=== PATIENT | male | born 1945 | race Caucasian/White ===

== ENCOUNTER 2020-09-30 13:53 | Outpatient (REF) | payer MEDICARE, SELFPAY ==
--- NOTE | 2020-10-01 11:16 | MHC.AU.P13 ---
Adult Audiological Evaluation Date of Visit: 09/30/20 Reason for Appointment: Audiological evaluation due to concerns for decreased hearing and tinnitus. Mr. Blackman reports that his feels he does not hear well. He reports that he has been experiencing constant, bilateral tinnitus for ~5 years. 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 Medical History: Medical History: High Blood Pressure Medical History (Other): Left knee replaced in 2007, prostate operation, chronic sinus congestion, history of deviated septum Otoscopy: Right Ear: Unremarkable Left Ear: Unremarkable Tympanometry: Tympanometry performed due to: History of allergies/congestion Right Ear: Non-compliant Middle Ear System (Type B) Left Ear: Reduced Middle Ear Compliance (Type As) Hearing Evaluation: Transducer(s) Used: Insert Earphones, Bone Conduction Method: Conventional Audiometry Stimuli Used: Pure Tones Right Ear: Description of Hearing: Normal hearing at 250 with a 15 dB conductive component, normal hearing 500-1000 Hz, sloping to a mild to moderately severe sensorineural hearing loss from 7268-0025 Hz, a moderately severe mixed hearing loss at 4000 Hz, and a severe hearing loss at 5542-9329 Hz. Left Ear: Description of Hearing: Moderate conductive hearing loss at 250 Hz, rising to a mild conductive hearing loss at 500 Hz, normal hearing at 0459-6969 Hz, sloping to a moderate sensorineural hearing loss at 2000 Hz, a moderate mixed hearing loss at 3000 Hz, a moderately severe sensorineural hearing loss at 4000 Hz, and a severe hearing loss from 1308-2831 Hz. Speech Recognition Threshold (SRT): Method Used: Monitored Live Voice Stimuli Used: Spondee Words Right Ear: 25 dBHL Left Ear: 25 dBHL Word Discrimination: Method: Recorded Lists Word Lists Used: NU-6 Right Ear: 88% at 65 dBHL Left Ear: 100% at 65 dBHL Recommendations: Audiological re-evaluation in one year. Trial with amplification is recommended. Referral to Ear, Nose, and Throat to address middle ear dysfunction. Mr. Blackman reports that he was referred to ENT due to his chronic sinus congestion. Recommend that he follow-up with ENT regarding the conductive components to his hearing loss and middle-ear dysfunction as well. Binaural amplification is recommended. Briefly discussed hearing aids today and welcomed him to return to discuss further following his visit with ENT. Discussed tinnitus and it's exacerbating factors today, such as caffeine, high salt intake, alcohol, nicotine, and stress. Recommend using noise (i.e. fans, music, calming sound generators) to help mask tinnitus when it is most bothersome. Diagnosis: Primary Diagnosis: H90.6 Mixed Hearing Loss, Bilateral Secondary Diagnosis: H93.13 Tinnitus, Bilateral Services Performed: Services Performed: Comprehensive Audiological Evaluation (CPT 43542) Tympanometry (CPT 16700) Signature: Provider: Dee Dee Vernon, CCC-A
== END 2020-09-30 13:54 | disposition home or self-care (01) ==
LOC: HO.SH 13:53
PROVIDERS: Visit Provider Internal Medicine
DX: H90.6 Mixed conductive and sensorineural hearing loss, bilateral (principal); H93.13 Tinnitus, bilateral
CPT/HCPCS: 92557; 92567

== ENCOUNTER 2024-08-12 09:09 | Outpatient (REF) | payer MEDICARE, SELFPAY ==
[2024-08-12 09:32] LABS: MANUAL DIFF FLAG NO
[2024-08-12 10:11] LABS: Basophils Absolute Auto 0.1 X10*3/uL (0.0-0.2); Basophils Percent Auto 0.7 % (0-2); Eosinophils Absolute Auto 0.3 X10*3/uL (0.0-0.4); Eosinophils Percent Auto 2.2 % (0-4); Hematocrit 44.5 % (42.0-52.0); Hemoglobin 14.4 g/dl (14.0-18.0); Imm Gran Abs Auto 0.06 X10*3/uL (0.00-0.03); Imm Gran Pct Auto 0.5 % (0.0-0.4); Lymphocytes Percent Auto 17.6 % (20-40); Mean Corpuscular HGB Conc 32.4 g/dl (31.0-36.0); Mean Corpuscular Hemoglobin 31.2 pg (27.0-33.0); Mean Corpuscular Volume 96.5 fL (80.0-98.0); Mean Platelet Volume 11.5 fL (9.4-12.4); Monocytes Absolute Auto 1.4 X10*3/uL (0.1-1.2); Monocytes Percent Auto 11.8 % (2-11); Neutrophils Absolute Auto 7.8 x10*3/uL (2.0-8.3); Neutrophils Percent Auto 67.2 % (45-73); Platelet Count 226 X10*3/uL (160-400); Red Blood Count 4.61 X10*6/uL (4.60-5.80); Red Cell Distribution Width 12.9 % (11.0-16.0); White Blood Count 11.6 X10*3/uL (4.8-10.8)
[2024-08-12 10:18] LABS: Estimated Average Glucose 126 mg/dL; Hemoglobin A1C 156.6054 umol/L; Total Hemoglobin (HGBA1C) 3710.4418 umol/L
[2024-08-12 10:47] LABS: Alanine Aminotransferase 70 U/L (0-40); Albumin Level 4.1 g/dL (3.5-5.0); Alkaline Phosphatase 72 U/L (39-117); Anion Gap 15 (12-20); Aspartate Amino Transferase 40 U/L (5-37); Bilirubin Total 0.4 mg/dL (0.0-1.0); Blood Urea Nitrogen 22 mg/dL (9-16); Calcium 9.9 mg/dL (8.4-10.2); Carbon Dioxide 27 mmol/L (22-29); Chloride 106 mmol/L (96-108); Cholesterol 126 mg/dL (<200); Estimated Glomerular Filt Rate 40; Glucose Random 69 mg/dL (60-115); HDL Cholesterol 48 mg/dL (>40); LDL Cholesterol Calculated 59 mg/dL (<100); Potassium 4.8 mmol/L (3.3-5.1); Sodium 143 mmol/L (135-145); Total Protein 7.1 g/dL (6.5-8.0); Triglycerides 99 mg/dL (<150)
[2024-08-12 11:09] LABS: Prostate Specific Antigen 9.68 ng/mL (<0.05-4.0)
== END 2024-08-12 09:10 | disposition home or self-care (01) ==
LOC: HO.LAB 09:09
DX: Z00.00 Encounter for general adult medical examination without abnormal findings (principal); E11.9 Type 2 diabetes mellitus without complications; Z12.5 Encounter for screening for malignant neoplasm of prostate
CPT/HCPCS: 36415; 80053; 80061; 83036; 84153; 85025

== ENCOUNTER 2024-10-15 12:51 | Outpatient (REF) | payer MEDICARE, SELFPAY ==
--- OUTSIDE RECORDS SUMMARY | 2024-10-15 13:54 | XMS_ITS | Clinical Summary ---
Author Organization [facility] Address [id number] [place] [phone] Care Team Providers Care Space Engineer Name Role Phone Joleen Bowers Primary Care Provider [phone] Medications amLODIPine (NORVASC) 2.5 mg tablet TAKE 1 TABLET DAILY 90 tablet 3 08/22/2024 Active amiodarone (PACERONE) 200 mg tablet TAKE 1 TABLET DAILY 90 tablet 09/10/2024 Active Encounters Date Type Department Care Team Description 08/12/2024 Telephone [facility] [address] [facility] [address] [place] [address] Marquise Leyva MD from Last 3 Months Surgical History Surgery Date Site/Laterality Comments TOTAL KNEE ARTHROPLASTY PROCEDURE: HISTORICAL TOTAL KNEE REPLACE; COMMENT: left COLONOSCOPY 07/16/07 PROCEDURE: DE COLONOSCOPY STOMA DX INCLUDING COLLJ SPEC SPX; COMMENT: Up to cecum, regular preparation, colon polyps (one not removed), tubular adenoma, moderate diverticulosis COLONOSCOPY W/ BIOPSIES 11/2010 PROCEDURE: DE COLONOSCOPY STOMA W/BIOPSY SINGLE/MULTIPLE; COMMENT: adenomas and tics; repeat in five years COLONOSCOPY 12/11/15 PROCEDURE: HISTORICAL COLONOSCOPY; COMMENT: tics; repeat in 5 yrs LIPOMA RESECTION PROCEDURE: SKIN TISSUE EXCISION(LIPOMA); COMMENT: multiple on back OTHER SURGICAL HISTORY PROCEDURE: DE OBLTRJ 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 REPAIR PROCEDURE: REPAIR UMBILICAL HERNIA Medical History Medical History Date Comments Unspecified essential hypertension DX:Unspecified essential hypertension Osteoarthrosis, unspecified whether generalized or localized, lower leg 10/18/2005 DX:Osteoarthrosis, unspecified whether generalized or localized, lower leg; COMMENT: Left knee S/P arthroscopy 2003: DJD GERD (gastroesophageal reflu x disease) 09/12/2005 DX:GERD (gastroesophageal re flux disease) BPH (benign prostatic hyperplasia) 06/27/2014 DX:BPH (benign prostatic hyperplasia) Osteoarthrosis, unspecified whether generalized or localized, hand 12/27/2005 DX:Osteoarthrosis, unsp ecified whether generalized or localized, hand; COMMENT: R>L thumbs CKD (chronic kidney disease) stage 3, GFR 30-59 ml/min (CMS/HCC) 04/13/2015 DX:CKD (chronic kidney dise ase) stage 3, GFR 30-59 ml/min ([facility]) Elevated PSA 09/01/2008 DX:Elevated PSA; COMMENT: PSA 7.9 with a negative biopsy, exam negative [address] Gavin History of total left knee replacement 11/06/2017 DX:History of total left kne e replacement Pre-diabetes 12/30/2015 DX:Pre-diabetes Dyspnea DX:Dyspnea Obesity DX:Obesity Prostate cancer (CMS/[facility]) DX:Pro state cancer ([facility]) HTN (hypertension) DX:HTN (hyper tension) Hearing difficulty DX:Hearing di fficulty Seasonal allergies DX:Seasonal a llergies Severe obesity (BMI 35.0-39. 9) with comorbidity (CMS/[facility]) DX:Severe obesity (BMI 35.0- 39.9) with comorbidity ([facility]) Depression DX:Depression Family History Medical History Relation Name Comments Pneumonia Father Heart attack Mother Relation Name Status Comments Daughter auto accident Father pneumonia Mother CAD Sister Alive Son 1 Alive Son 2 Alive alcoholism Uncle ?cancer Social History Tobacco Use Types Packs/Day Years Used Date Smoking Tobacco: Never Smokeless Tobacco: Never Alcohol Use Standard Drinks/Week Comments Yes 0 (1 standard drink = 0.6 oz pur e alcohol) Sex and Gender Information Value Date Recorded Sex Assigned at Not on file Legal Sex Male 9:03 PM EST Gender Identity Not on file Sexual Orientation Not on file Obstetrics History Last Filed Vital Signs Vital Sign Reading Time Taken Comments Blood Pressure 140/86 02/20/2024 7:55 AM EDT Pulse 61 02/20/2024 7:55 AM EDT Temperature - - Respiratory Rate - - Oxygen Saturation - - Inhaled Oxygen Concentration - - Weight 98.4 kg (217 lb) 02/20/2024 7:55 AM EDT Height 177.8 cm (5' 10 ) 02/20/2024 7:55 AM EDT Body Mass Index 31.14 02/20/2024 7:55 AM EDT Plan of Treatment Health Maintenance Due Date Last Done Comments Diabetes: Annual GFR (Glomerular Filtration Rate) 1944 Diabetes: Annual Foot Exam 1954 Diabetes: Annual Retina Eye Exam 1954 DTaP,Tdap,and Td Vaccines (3 - Td or Tdap) 05/26/2017 11/23/2016, 11/22/2006 RSV Immunization Patients 60+ Years Old (1 - 1-dose 75+ series) 2019 Cholesterol Screening (Lipid Panel) 08/06/2022 Colorectal Cancer Screening: Colonoscopy 08/06/2022 Falls Risk Assessment 08/06/2022 Medicare Annual Wellness Visit 08/06/2022 Social Influencers of Health Screening 08/06/2022 Hypertension/CHF/CAD Annual BMP Blood Test 08/14/2022 Diabetes: Annual Urine Albumin-Creatinine Ratio (uACR) 08/18/2022 Diabetes: Blood Sugar Control Test (HGBA1C) 08/18/2022 COVID-19 Vaccine ( season) 2024 06/28/2023, 03/26/2022, 06/19/2021, Additional history exists Influenza Vaccine (#1) 2024 , 06/13/2022, 05/17/2021, Additional history exists Depression Screening 08/10/2024 08/10/2023 Pneumococcal Vaccine: 50+ Years Completed 11/23/2016, 06/27/2014, 11/22/2006 Zoster Vaccines Completed 11/30/2018, 09/05, 12/20/2011 HIB Vaccines Aged Out No longer eligi ble based on patient's age to complete this topic HPV Vaccines Aged Out No longer eligi ble based on patient's age to complete this topic Hepatitis A Vaccines Aged Out No long er eligible based on patient's age to complete this topic Hepatitis B Vaccines Aged Out No long er eligible based on patient's age to complete this topic IPV Vaccines Aged Out No longer eligi ble based on patient's age to complete this topic MMR Vaccines Aged Out No longer eligi ble based on patient's age to complete this topic Meningococcal ACWY Vaccine Aged Out N o longer eligible based on patient's age to complete this topic Meningococcal B Vacine Aged Out No lo nger eligible based on patient's age to complete this topic RSV Immunization Patients Under 20 months Aged Out No longer eligible based on patient's age to complete this topic Varicella Vaccines Aged Out No longer eligible based on patient's age to complete this topic Care Teams Space Engineer Relationship Specialty Start Date End Date Joleen Bowers PA [address] [place] [address] PCP - General 06/01/22
--- OUTSIDE RECORDS SUMMARY | 2024-10-15 13:54 | XMS_ITS | Encounter Summary ---
Author Organization [facility] Address [address] [place] [phone] Care Team Providers Care Solar Engineer Name Role Phone Joleen Bowers Primary Care Provider [phone] Encounter Details Date Type Department Care Team (Late st Contact Info) Description 08/12/2024 Telephone [facility] [address] [facility] [address] [place] [phone] Marquise Leyva MD [address] [place] [address] Social History Tobacco Use Types Packs/Day Years Used Date Smoking Tobacco: Never Smokeless Tobacco: Never Alcohol Use Standard Drinks/Week Comments Yes 0 (1 standard drink = 0.6 oz pur e alcohol) Sex and Gender Information Value Date Recorded Sex Assigned at Not on file Legal Sex Male 9:03 PM EST Gender Identity Not on file Sexual Orientation Not on file documented as of this encounter Progress Notes * Nancy Knutson - 09/16/2024 4:32 PM EST Called patient to book followup from cancellation list, patient has transferred care. * Glo Foley MA - 08/12/2024 12:35 PM EST Device Care transferred to Dr. Vaca at [facility] documented in this encounter Plan of Treatment Not on file documented as of this encounter Visit Diagnoses Not on filedocumented in this encounter Care Teams Solar Engineer Relationship Specialty Start Date End Date Joleen Bowers PA [address] [place] [id number] PCP - General 06/01/22 documented as of this encounter
--- OUTSIDE RECORDS SUMMARY | 2024-10-15 13:54 | XMS_ITS | Clinical Summary ---
Author Organization [facility] Address [address] [place] [address] Phone Care Team Providers Care Polisher Aluminum Name Role Phone Joleen Bowers PA-C Primary Care Provider [phone] Allergies Active Allergy Reactions Criticality Noted Date Comments Amoxicillin Other (see comments) 03/20/2024 Medications amiodarone (PACERONE) 200 MG tablet 1 (one) time each day Active amLODIPine (NORVASC) 2.5 MG tablet 4 Active Eliquis 5 MG tablet 4 Active aspirin (ST AURE) 81 MG EC tablet Take 81 mg by mouth in the morning. Active atorvastatin (LIPITOR) 40 MG tablet Take 40 mg by mouth in the morning. Active clindamycin (CLEOCIN) 300 MG capsule TAKE 2 CAPSULES BY MOUTH 1 HOUR BEFORE APPT 4 Active clopidogrel (PLAVIX) 75 MG tablet Take 75 mg by mouth in the morning. Active doxycycline (VIBRA-TABS) 100 MG tablet 4 Active glipiZIDE (GLUCOTROL) 5 MG tablet Take 5 mg by mouth in the morning and 5 mg in the evening. Take before meals. Active losartan (COZAAR) 25 MG tablet Take 25 mg by mouth in the morning. Active metoprolol succinate XL (TOPROL XL) 25 MG 24 hr tablet 0.5 mg 4 Active metoprolol tartrate 25 MG tablet Take 25 mg by mouth in the morning and 25 mg in the evening. Active montelukast (SINGULAIR) 10 MG tablet 1 (one) time each day Active omeprazole (PriLOSEC) [address] capsule 4 Active tamsulosin (FLOMAX) 0.4 MG 24 hr capsule 1 capsule 1 (one) time each day Active triamcinolone (NASACORT) 55 MCG/ACT nasal inhaler 1 (one) time each day Active Dapagliflozin Propanediol 5 MG tablet Take 5 mg by mouth 1 (one) time each day in the morning 90 tablet 3 Active Active Problems Problem Noted Date Diagnosed Date Dyspnea 04/17/2024 Hypertension 04/17/2024 Obese class I 04/17/2024 Ulcer of toe of left foot 04/17/2024 Type 2 diabetes mellitus 04/17/2024 Tricuspid valve regurgitation 04/17/2024 Seasonal allergy 04/17/2024 Hearing difficulty 04/17/2024 Coronary arteriosclerosis 04/17/2024 Automatic implantable cardiac defibrillator in s itu 04/17/2024 Benign prostatic hyperplasia 03/20/2024 Gastroesophageal reflux disease 03/20/2024 Chronic kidney disease 03/20/2024 Constipation 03/20/2024 Depressive disorder 03/20/2024 Hyperlipidemia 03/20/2024 Essential (primary) hypertension 03/20/2024 Body mass index 40+ - severely obese 03/20/2024 Shortness of breath 03/20/2024 Type 2 diabetes mellitus wit h other diabetic kidney complication 03/20/2024 Ventricular tachycardia 03/20/2024 COVID-19 09/19/2023 Social History Tobacco Use Types Packs/Day Years Used Date Smoking Tobacco: Never Smokeless Tobacco: Never Tobacco Cessation:Counseling Given: Not Answered Alcohol Use Standard Drinks/Week Comments Never 0 (1 standard drink = 0.6 oz pur e alcohol) Sex and Gender Information Value Date Recorded Sex Assigned at Not on file Legal Sex Male 12:56 PM EDT Gender Identity Not on file Sexual Orientation Not on file Last Filed Vital Signs Vital Sign Reading Time Taken Comments Blood Pressure 119/71 04/17/2024 3:46 PM EDT Pulse 60 04/17/2024 3:46 PM EDT Temperature - - Respiratory Rate - - Oxygen Saturation - - Inhaled Oxygen Concentration - - Weight 98.4 kg (217 lb) 04/17/2024 3:46 PM EDT Height - - Body Mass Index - - Plan of Treatment Upcoming Encounters Date Type Department Care Team (Late st Contact Info) Description 10/23/2024 3:00 PM EST Office Visit [facility] [address] [place] [address] Diallo Freedman MD [address] [phone] Health Maintenance Due Date Last Done Comments Diabetes: Hemoglobin A1C 03/20/2024 Diabetes: Ophthalmology Exam 03/20/2024 Diabetes: Pedal Pulse Checked 03/20/2024 Diabetes: Sensory Foot Exam 03/20/2024 Diabetes: Visual Foot Exam 03/20/2024 Influenza Vaccine (#1) 2024 Pneumococcal Vaccine: 65+ Years Completed 11/23/2016, 06/27/2014, 11/22/2006 Hepatitis B Vaccine Aged Out No longe r eligible based on patient's age to complete this topic Insurance MEDICARE [facility] MEDICARE [facility] Care Teams Polisher Aluminum Relationship Specialty Start Date End Date Joleen Bowers PA-C [address] [place] [id number] PCP - General Internal Medicine 12/01/23
[2024-10-15 14:07] LABS: Blood Urea Nitrogen 22 mg/dL (9-16); Estimated Glomerular Filt Rate 48
== END 2024-10-15 12:52 | disposition home or self-care (01) ==
LOC: HO.LAB 12:51
DX: N18.9 Chronic kidney disease, unspecified (principal)
CPT/HCPCS: 36415; 82565; 84520

== ENCOUNTER 2024-12-18 13:48 | Outpatient (REF) | payer MEDICARE, SELFPAY ==
[2024-12-18 14:07] LABS: MANUAL DIFF FLAG NO
[2024-12-18 14:55] LABS: Basophils Absolute Auto 0.1 X10*3/uL (0.0-0.2); Basophils Percent Auto 0.6 % (0-2); Eosinophils Absolute Auto 0.1 X10*3/uL (0.0-0.4); Eosinophils Percent Auto 1.5 % (0-4); Hematocrit 43.5 % (42.0-52.0); Hemoglobin 14.6 g/dl (14.0-18.0); Imm Gran Abs Auto 0.07 X10*3/uL (0.00-0.03); Imm Gran Pct Auto 0.9 % (0.0-0.4); Lymphocytes Percent Auto 24.2 % (20-40); Mean Corpuscular HGB Conc 33.6 g/dl (31.0-36.0); Mean Corpuscular Hemoglobin 31.7 pg (27.0-33.0); Mean Corpuscular Volume 94.6 fL (80.0-98.0); Mean Platelet Volume 11.7 fL (9.4-12.4); Monocytes Absolute Auto 0.8 X10*3/uL (0.1-1.2); Monocytes Percent Auto 9.4 % (2-11); Neutrophils Absolute Auto 5.2 x10*3/uL (2.0-8.3); Neutrophils Percent Auto 63.4 % (45-73); Platelet Count 205 X10*3/uL (160-400); Red Cell Distribution Width 13.6 % (11.0-16.0); White Blood Count 8.2 X10*3/uL (4.8-10.8)
[2024-12-18 15:58] LABS: Vitamin B12 312 pg/mL (200-900)
[2024-12-18 16:27] LABS: Alanine Aminotransferase 28 U/L (0-40); Albumin Level 4.3 g/dL (3.5-5.0); Alkaline Phosphatase 63 U/L (39-117); Anion Gap 13 (12-20); Aspartate Amino Transferase 25 U/L (5-37); Bilirubin Total 0.9 mg/dL (0.0-1.0); Blood Urea Nitrogen 26 mg/dL (9-16); Carbon Dioxide 22 mmol/L (22-29); Chloride 111 mmol/L (96-108); Estimated Glomerular Filt Rate 37; Glucose Random 96 mg/dL (60-115); Iron 95 mcg/dL (45-160); Percent Iron Saturation 36 % (15-50); Potassium 4.7 mmol/L (3.3-5.1); Sodium 141 mmol/L (135-145); Total Iron Binding Capacity 262 mcg/dL (228-428); Total Protein 6.8 g/dL (6.5-8.0); Unsaturated Iron Binding 167 ug/dL
--- OUTSIDE RECORDS SUMMARY | 2024-12-18 16:31 | XMS_ITS | Clinical Summary ---
Author Organization [facility] Address [address] [place] [address] Phone Care Team Providers Care Personnel Supervisor Name Role Phone Joleen Bowers PA-C Primary Care Provider Allergies Active Allergy Reactions Criticality Noted Date [...] Mass Index - - Plan of Treatment Health Maintenance Due Date Last Done Comments Diabetes: Hemoglobin A1C 03/20/2024 Diabetes: Ophthalmology Exam 03/20/2024 Diabetes: Pedal Pulse Checked 03/20/2024 Diabetes: Sensory Foot Exam 03/20/2024 Diabetes: Visual Foot Exam 03/20/2024 Influenza Vaccine (Season Ended) 2025 Pneumococcal Vaccine: 50+ Years Completed 11/23/2016, 06/27/2014, 11/22/2006 Hepatitis B Vaccine Aged Out No longe r eligible based on patient's age to complete this topic Insurance Medicare [facility] Medicare [facility] Care Teams Personnel Supervisor Relationship Specialty Start Date End Date Joleen Bowers PA-C [address] [place] [phone] PCP - General Internal Medicine 12/01/23
--- OUTSIDE RECORDS SUMMARY | 2024-12-18 16:31 | XMS_ITS | Clinical Summary ---
Author Organization [facility] Address [id number] [place] [id number] Care Team Providers Care Sheet Mill Supervisor Name Role Phone Joleen Bowers Primary Care Provider [phone] Medications amLODIPine (NORVASC) 2.5 mg tablet TAKE 1 TABLET DAILY 90 tablet 3 4 Active amiodarone (PACERONE) 200 mg tablet TAKE 1 TABLET DAILY 90 tablet 1 5 Active amiodarone (PACERONE) 200 mg tablet TAKE 1 TABLET DAILY 90 tablet 5 12/11/19 25 Discontinued Encounters Date Type Department Care Team Description 12/06/2024 8:25 PM EDT Ancillary Procedure [facility] - [address] [place] [address] 12/06/2024 5:20 PM EDT Ancillary Procedure [facility] [address] [place] [address] 10/24/2024 Telephone [facility] - [address] [place] [address] Virginia Jack NP Transfer of Care from Last 3 Months Surgical History Surgery Date Site/Laterality Comments TOTAL KNEE ARTHROPLASTY PROCEDURE: HISTORICAL TOTAL KNEE REPLACE; COMMENT: left COLONOSCOPY 07/16/07 PROCEDURE: DC COLONOSCOPY STOMA DX INCLUDING COLLJ SPEC SPX; COMMENT: Up to cecum, regular preparation, colon polyps (one not removed), tubular adenoma, moderate diverticulosis COLONOSCOPY W/ BIOPSIES 11/2010 PROCEDURE: DC COLONOSCOPY STOMA W/BIOPSY SINGLE/MULTIPLE; COMMENT: adenomas and tics; repeat in five years COLONOSCOPY 12/11/15 PROCEDURE: HISTORICAL COLONOSCOPY; COMMENT: tics; repeat in 5 yrs LIPOMA RESECTION PROCEDURE: SKIN TISSUE EXCISION(LIPOMA); COMMENT: multiple on back OTHER SURGICAL HISTORY PROCEDURE: DC 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 Gavin History of total left knee replacement 11/06/2017 DX:History of total left kne e replacement Pre-diabetes 12/30/2015 DX:Pre-diabetes Dyspnea DX:Dyspnea Obesity DX:Obesity Prostate cancer ([facility] V24 , [facility] V28) DX:Prostate cancer (HCC) HTN (hypertension) DX:HTN (hyper tension) Hearing difficulty DX:Hearing di fficulty Seasonal allergies DX:Seasonal a llergies Severe obesity (BMI 35.0-39. 9) with comorbidity ([facility]/H[facility] V24, [facility] V28) DX:Severe obesity (BMI 35.0- 39.9) with comorbidity ([facility]) Depression DX:Depression Family History Medical History Relation [...] 1955 Diabetes: Annual Retina Eye Exam 1955 Cholesterol Screening (Lipid Panel) 08/06/2022 Colorectal Cancer Screening: Colonoscopy 08/06/2022 Falls Risk Assessment 08/06/2022 Medicare Annual Wellness Visit 08/06/2022 Social Influencers of Health Screening 08/06/2022 Hypertension/CHF/CAD Annual BMP Blood Test 08/14/2022 Diabetes: Annual Urine Albumin-Creatinine Ratio (uACR) 08/18/2022 Diabetes: Blood Sugar Control Test (HGBA1C) 08/18/2022 Depression Screening 08/10/2024 08/10/2023 COVID-19 Vaccine (9 - Pfizer risk season) 2024 05/29/2024, 06/28/2023, 06/13/2022, Additional history exists DTaP,Tdap,and Td Vaccines (3 - Td or Tdap) 11/23/2026 11/23/2016, 11/22/2006 Pneumococcal Vaccine: 50+ Years Completed 11/23/2016, 06/27/2014, 11/22/2006 Zoster Vaccines Completed 11/30/2018, 09/05, 12/20/2011 RSV Immunization Adult Patients Completed 08/04/2023 Influenza Vaccine Completed 05/29/2024, , 06/13/2022, Additional history exists HIB Vaccines Aged Out No longer eligi [...] age to complete this topic Meningococcal B Vaccine Aged Out No l onger eligible based on patient's age to complete this topic RSV Immunization Patients Under 20 months Aged Out No longer eligible based on patient's age to complete this topic Varicella Vaccines Aged Out No longer eligible based on patient's age to complete this topic Medical Devices Implanted Type Area Food Dehydrator Operator Device Identifier Shelf Expiration Date Model / Serial / Lot [id number] Indra(Yaya) [id number] Implanted:05/05 (Quantity not on file) Cardiac ICD [facility] [id number] INDRA(TM ) / [id number] / Procedures Procedure Name Priority Date/Time Associated Diagnosis Comments CARDIAC DEVICE CHECK- REMOTE- MURJ Routine 12/06/2024 8:20 PM EDT CARDIAC DEVICE CHECK- REMOTE- MURJ Routine 12/06/2024 5:16 PM EDT from Last 3 Months Results * Cardiac device check - Remote- MURJ (12/06/2024 8:20 PM EDT) Only the most recent of2 resultswithin the time period is included. Date Time Interrogation Session [id number] CV DEVICE CHECK Type Interrogation Session Remote Device Initiated CV DEVICE CHECK Implantable Pulse Generator Food Dehydrator Operator St[employer]Alex CV DEVICE CHECK Implantable Pulse Generator Type ICD CV DEVICE CHECK Implantable Pulse Generator Model [id number] Indra(TM) CV DEVICE CHECK Implantable Pulse Generator Serial Number [id number] CV DEVICE CHECK Implantable Pulse Generator Implant Date [id number] CV DEVICE CHECK Battery Remaining Percentage 86.00 CV DEVICE CHECK Battery Remaining Longevity 91.0 CV DEVICE CHECK Battery Voltage 3.010 CV D EVICE CHECK Battery CORPORATE LEGAL ASSISTANT Trigger 2.620 CV DEVICE CHECK Battery Status Middle of Service CV DEVICE CHECK Capacitor Charge Time 8.500 CV DEVICE CHECK Elijah Statistic RA Percent Paced 80.00 CV DEVICE CHECK Elijah Statistic RV Percent Paced 1.00 CV DEVICE CHECK Atrial Tachy Statistic AT/AF [place] Percent 1.00 CV DEVICE CHECK Lead Channel Sensing Intrinsic Amplitude 1.400 CV DEVICE CHECK Lead Channel Setting Sensing Sensitivity 0.30 CV DEVICE CHECK Lead Channel Impedance Value 400 CV DEVICE CHECK Lead Channel Pacing Threshold Amplitude 0.625 CV DEVICE CHECK Lead Channel Pacing Threshold Pulse Width 0.5 CV DEVICE CHECK Lead Channel RA Pacing Threshold Date 2024-05-21 CV DEVICE CHECK Lead Channel Setting Pacing Amplitude 2.000 CV DEVICE CHECK Lead Channel Setting Pacing Pulse Width 0.5 CV DEVICE CHECK Lead Channel Sensing Intrinsic Amplitude 10.300 CV DEVICE CHECK Lead Channel Setting Sensing Sensitivity 0.50 CV DEVICE CHECK Lead Channel Impedance Value 340 CV DEVICE CHECK Lead Channel Pacing Threshold Amplitude 0.625 CV DEVICE CHECK Lead Channel Pacing Threshold Pulse Width 0.5 CV DEVICE CHECK Lead Channel RV Pacing Threshold Date 2024-05-21 CV DEVICE CHECK Lead Channel Setting Pacing Amplitude 0.875 CV DEVICE CHECK Lead Channel Setting Pacing Pulse Width 0.5 CV DEVICE CHECK Elijah Setting Mode (NBG Code) DDDR CV DEVICE CHECK Elijah Setting Lower Rate Limit 60 CV DEVICE CHECK Elijah Setting AT Mode Switch Rate 180 CV DEVICE CHECK Elijah Setting Maximum Tracking Rate 130 CV DEVICE CHECK Elijah Setting Maximum Sensor Rate 130 CV DEVICE CHECK Elijah Setting PAV Delay 200 CV DEVICE CHECK Elijah Setting SHAMAR Delay 150 CV DEVICE CHECK Therapy Statistic Recent Shocks Delivered 0 CV DEVICE CHECK Therapy Statistic Recent Shocks Aborted 0 CV DEVICE CHECK Therapy Statistic Recent ATP Delivered 0 CV DEVICE CHECK Shock Measured Impedance 71 CV DEVICE CHECK Zone Setting Type Category VT CV DEVICE CHECK Rate 150 CV DEVICE CHECK Zone Setting Status On CV DEVICE CHECK Zone ID 1 CV DEVICE CHECK Zone Setting Type Category VT CV DEVICE CHECK Rate 171 CV DEVICE CHECK Therapies 8 x Burst+Scan,28.9J, 36.3J,36.3J x 2 CV DEVICE CHECK Zone Setting Status On CV DEVICE CHECK Zone ID 2 CV DEVICE CHECK Zone Setting Type Category VF CV DEVICE CHECK Rate 214 CV DEVICE CHECK Therapies 32.7J,36.3J,36.3J x 4 CV DEVICE CHECK Zone Setting Status On CV DEVICE CHECK Zone ID 3 CV DEVICE CHECK Date of Service 2024-06-22 CV DEVICE CHECK Anatomical Region Laterality Modality Device Interroga tion 05/21/2024 2:00 AM EDT Impressions 05/21/2024 10:00 AM EDT Normal Remote: With Events * Normal Device Function * Events or Alerts: PAF / Longest was 1 hour 43 min / Meds include Eliquis / Rate Controlled * Battery: Battery is at 86%, 7.58 yrs * Sensing, impedance and thresholds reviewed * Programmed parameters reviewed * Presenting rhythm reviewed * Heart Rate Histograms reviewed Narrative Procedure Note Florencia Chaney PA - 12/06/2024 IMPRESSION: Normal Remote: With Events * Normal Device Function * Events or Alerts: PAF / Longest was 1 hour 43 min / Meds includeEliquis / Rate Controlled * Battery: Battery is at 86%, 7.58 yrs * Sensing, impedance and thresholds reviewed * Programmed parameters reviewed * Presenting rhythm reviewed * Heart Rate Histograms reviewed Florencia GARCIA CV IMPLANTABLE CARDIAC DEVICE DC OCEDURES Final Result from Last 3 Months Insurance MEDICARE Care Teams Sheet Mill Supervisor Relationship Specialty Start Date End Date Joleen Bowers PA [address] [place] [id number] PCP - General 06/01/22
--- OUTSIDE RECORDS SUMMARY | 2024-12-18 16:31 | XMS_ITS ---
[facility] Address [address] [place], [place] [address] Care Team Providers Care Surgical Instruments Inspector Name Role Phone Elke Franco Primary Care Provider Unavaila ble Black, Arielle Unavailable [phone] Allergies Allergen (clinical drug ingredient) Drug/Non Drug Allergy documented on EMR Reaction Allergy Type Onset Date Status amoxicillin Amoxicillin Unknown Drug Allergy Act dana REASON FOR VISIT At Risk Footcare, Wart(s), Ingrown Nail Medications Medication SIG (Take, Route, Frequency, Duration) Notes Start Date End Date Status metFORMIN HCl Not-Ta melina Accu-Chek Joan Plus as directed once a day Not-Taking Fluticasone Furoate 200 MCG/ACT 1 puff Inhalation Once a day Not-Taking Lisinopril 5 MG 1 tablet Orally Once a day for 30 day(s) Not-Taking Ciclopirox Olamine 0.77 % 1 application to affected area Externally to feet Twice a day for 30 days Not-Taking Extra Depth Orthopedic Shoes (1 Pair) with Customized Heat Molded Multidensity Innersoles (3 Pair) as directed Dx: NIDDM/Polyneuropathy (E11.42), Hammertoe Foot Deformity (M20.41,M20.42), Preulcerative Skin Lesion(s) (L85.1 08/13/2020 Not-Taking Cephalexin 500 MG 1 capsule Orally nilsa ry 8 hrs for 10 days Not-Taking Antibiotic Not-Takin g Eliquis 5 MG Oral for 90 Days Active Cephalexin 500 MG 1 capsule Orally Thr ee times a day for 10 day(s) 02/29/2024 Active Montelukast Sodium 10 MG 1 tablet Orally Once a day for 30 day(s) Active Tylenol Active Triamcinolone Acetonide 55 MCG/ACT 1 spray in each nostril Nasally Once a day for 30 day(s) Active Omeprazole 20 MG 1 capsule 30 minutes before morning meal Orally Once a day for 30 day(s) Active Extra Depth Orthopedic Shoes (1 Pair) with Customized Heat Molded Multidensity Innersoles (3 Pair) as directed Dx: NIDDM/Polyneuropathy (E11.42), Hammertoe Foot Deformity (M20.41,M20.42), Preulcerative Skin Lesion(s) (L85.1 10/03/2022 Active glipiZIDE XL Active Tamsulosin HCl 0.4 MG 1 capsule Orally O nce a day for 30 day(s) Active Clopidogrel Bisulfate Active Losartan Potassium A ctive Metoprolol Tartrate Active Amiodarone HCl 200 MG 1 tablet Orally On ce a day Active Atorvastatin Calcium Active Social History Tobacco Use: Social History Observation Description Date Details (start date - stop date) Never Smoker NA - NA Tobacco Use/Smoking Question Answer Notes Are you a: nonsmoker Additional Findings: Tobacco Non-User Current no n-smoker Tobacco use other than smoking: Question Answer Notes Are you an other tobacco user? No Vital Signs Height 5 ft 7.5in in 06/06/2024 Weight 209 lbs 06/06/2024 BMI 32.25 kg/m2 06/06/2024 Procedures Procedure Date Ordered Date Performed Result Body Sit e 87938-IYVINLA NAIL, 6 OR MORE 06/06/2024 N/A 62878-Woul Destruction, 1-14 06/06/2024 N/A 43434-Tjotlccy Plate 06/06/2024 N/A 80970-USMP SKIN LESIONS, 2 TO 4 06/06/2024 N/A Encounters Encounter Location Date Provider Diagnosis [facility] [place] [address] [place] [address] 06/06/2024 Arielle Black Type 2 diabetes mellitus with diabetic polyneuropathy E11.42 ; Plantar wart B07.0 ; Tinea unguium B35.1 ; Pain in right foot M79.671 and Ingrown nail L60.0 Assessments Encounter Date Diagnosis (ICD Code) Assessment Notes Treatment Notes Treatment Clinical Notes Section Notes 06/06/2024 Type 2 diabetes mellitus with diabetic polyneuropathy (ICD-10 - E11.42) 06/06/2024 Plantar wart (ICD-10 - B07.0) 06/06/2024 Tinea unguium (ICD-10 - B35.1) 06/06/2024 Pain in right foot (ICD-10 - M79.671) 06/06/2024 Ingrown nail (ICD-10 - L60.0) Plan Of Treatment Pending Test Test Name Order Date 81519-DKDLYUY NAIL, 6 OR MORE 06/06/2024 71764-Xfzw Destruction, 1-14 06/06/2024 56777-Saxjxnvc Plate 06/06/2024 50660-ENGW SKIN LESIONS, 2 TO 4 06/06/20 24 Next Appt Details Follow Up: 2 Weeks,prn, Reas on: Provider Name:Arielle Arellano Stefano , 03/24/2025 09:00:00 AM, [address] [place] [address], [place], [address], Procedure Notes * Category Sub-Category Detail Notes Wart Treatment Procedure Verrucae were de brided to pin-point bleeding margins with sterile 15 surgical blade - 91253 , silver nitrate chemocautery applied , DIABETES: Any more invasive procedure to wart deferred due to diabetes risk Nail Avulsion Procedure A fine sterile e levator was placed between the eponychium, nail fold, and nail plate to separate the structures. A sterile nail splitter, and/or sterile 316 blade, was then used to longitudinally section the nail along its entire length through the eponychium to the area under the nail fold. The offending portion of nail was from the nail bed with a rolling action and then removed with a hemostat. No underlying bone was identified. There was minimal bleeding as hemostasis was achieved through the temporary use of either a digital tourniquet or the aforementioned local with epinephrine. A bacitracin sterile dressing was applied. Local wound aftercare instructions were discussed and dispensed. The patient was informed of both conservative and future surgical procedures to prevent recurrence. Tylenol or Motrin was recommended for pain or discomfort (89127) , DIABETES: Matricectomy deferred at this time due to diabetes risk Anesthesia was deferred - NEURO JUAN: patient has medically documented neuropathic condition affecting sensation Location Bilateral nail borde r , T1 Debride Nail 6-10 Nail debridement Performance o f this nail treatment by a nonprofessional would put this patients foot and overall health at risk. Therefore, nail debridement was performed extensively to reduce/remove overall nail length, girth, thickness, subungual debris, and necrotic tissue, by manual and/or electrical means through the use of a nail nipper and/or dremel-type crystal grinder, to a more viable healthy nail plate or bed tissue 6-10. Silver nitrate used for any petechial bleeding as necessary. Definitive antifungal treatment options have been reviewed and discussed with the patient. The patient chooses, no pharmaceutical tx - 54520 Keratoma Treatment Parring or Cutting o f Benign Hyperkeratotic Lesion(s) 08522 (2-4 Lesions) - The Benign hyperkeratotic lesions, as described above were pared, and/or cut utilizing a sterile #15 blade, tissue nippers, and/or dremel Progress Notes * Gonzalez BLACKMANDOB: [birth year] (79 yo M)Acc No.[id number]:06/06/2024 Progress Note Patient:?Gonzalez BLACKMAN Provider:?Arielle Agarwal DPM :1945???Age:79 Y???Sex:Male Tristan e:06/06/2024 [facility] Pcp:Elke Franco Subjective: * Chief Complaints: * ???At Risk FootcareWart(s)In grown Nail * HPI: ???At Risk footcare:?Pt States Last PCP Visit:?Date?03/28/2024 ???Ingrown toenail:?Location:?Second toe , Left foot.? * Medical History:? * Surgical History:?left knee replacement hernia 07/2019Prostate Surgery 07/2020cyst lanced 08/12/21Defibrillator 06/2023 * Hospitalization/Major Diagno stic Procedure:?[facility] - Stint 2Dr. Elissa - back infection 04/29/24 * Family History:?Mother: dece ased, heart attack, diagnosed with Unspecified heart disease.?Father: .? * Social History:?Tobacco Use:?Tobacco Use/Smoking?Are you a:?nonsmoker ?Additional Findings: Tobacco Non-User?Current non-smoker ?Tobacco use other than smoking?Are you an other tobacco user??No ???Miscellaneous:?Caffeine: yes, 2-3 cups per day. ?Children: yes, 2. ?Exercise: yes, Cardiac Rehab. ?Marital status: . ?Occupation: Retired,- [employer] * Medications:?TakingAmiodaron e HCl 200 MG Tablet 1 tablet Orally Once a day Atorvastatin Calcium Metoprolol Tartrate Clopidogrel Bisulfate Losartan Potassium glipiZIDE XL Tamsulosin HCl 0.4 MG Capsule 1 capsule Orally Once a day Triamcinolone Acetonide 55 MCG/ACT Aerosol 1 spray in each nostril Nasally Once a day Omeprazole 20 MG Capsule Delayed Release 1 capsule 30 minutes before morning meal Orally Once a day Montelukast Sodium 10 MG Tablet 1 tablet Orally Once a day Tylenol Extra Depth Orthopedic Shoes (1 Pair) with Customized Heat Molded Multidensity Innersoles (3 Pair) as directed Dx: NIDDM/Polyneuropathy (E11.42), Hammertoe Foot Deformity (M20.41,M20.42), Preulcerative Skin Lesion(s) (L85.1 Eliquis 5 MG Tablet Oral Cephalexin 500 MG Capsule 1 capsule Orally Three times a day Taking Amiodarone HCl 200 MG Tablet 1 tablet Orally Once a day Taking Atorvastatin Calcium Taking Metoprolol Tartrate Taking Clopidogrel Bisulfate Taking Losartan Potassium Taking glipiZIDE XL Taking Tamsulosin HCl 0.4 MG Capsule 1 capsule Orally Once a day Taking Triamcinolone Acetonide 55 MCG/ACT Aerosol 1 spray in each nostril Nasally Once a day Taking Omeprazole 20 MG Capsule Delayed Release 1 capsule 30 minutes before morning meal Orally Once a day Taking Montelukast Sodium 10 MG Tablet 1 tablet Orally Once a day Taking Tylenol Taking Extra Depth Orthopedic Shoes (1 Pair) with Customized Heat Molded Multidensity Innersoles (3 Pair) as directed Dx: NIDDM/Polyneuropathy (E11.42), Hammertoe Foot Deformity (M20.41,M20.42), Preulcerative Skin Lesion(s) (L85.1 Taking Eliquis 5 MG Tablet Oral Taking Cephalexin 500 MG Capsule 1 capsule Orally Three times a day Not-Taking/PRNCephalexin 500 MG Capsule 1 capsule Orally every 8 hrs Antibiotic Extra Depth Orthopedic Shoes (1 Pair) with Customized Heat Molded Multidensity Innersoles (3 Pair) as directed Dx: NIDDM/Polyneuropathy (E11.42), Hammertoe Foot Deformity (M20.41,M20.42), Preulcerative Skin Lesion(s) (L85.1 Ciclopirox Olamine 0.77 % Cream 1 application to affected area Externally to feet Twice a day Fluticasone Furoate 200 MCG/ACT Aerosol Powder Breath Activated 1 puff Inhalation Once a day Lisinopril 5 MG Tablet 1 tablet Orally Once a day metFORMIN HCl Accu-Chek Joan Plus as directed once a day Medication List reviewed and reconciled with the patientNot-Taking/PRN Cephalexin 500 MG Capsule 1 capsule Orally every 8 hrs Not-Taking/PRN Antibiotic Not-Taking/PRN Extra Depth Orthopedic Shoes (1 Pair) with Customized Heat Molded Multidensity Innersoles (3 Pair) as directed Dx: NIDDM/Polyneuropathy (E11.42), Hammertoe Foot Deformity (M20.41,M20.42), Preulcerative Skin Lesion(s) (L85.1 Not-Taking/PRN Ciclopirox Olamine 0.77 % Cream 1 application to affected area Externally to feet Twice a day Not-Taking/PRN Fluticasone Furoate 200 MCG/ACT Aerosol Powder Breath Activated 1 puff Inhalation Once a day Not-Taking/PRN Lisinopril 5 MG Tablet 1 tablet Orally Once a day Not-Taking/PRN metFORMIN HCl Not-Taking/PRN Accu-Chek Joan Plus as directed once a day Medication List reviewed and reconciled with the patient * Allergies:?Amoxicillinyes[Al ayana Verified] Objective: * Vitals:?Ht: 5 ft 7.5in, Wt: 209, BMI: 32.25, Shoe size: 12, BS: 128, Ht-cm: 171.45 cm, Wt-k.8 kg. * Examination: ???Ophthalmology Referral: ?DIABETES EYE EXAM?Diabetic Retinopathy Screening:?Yes ?Findings of Diabetic Eye Exam:?no retinopathy?Neurological: ?SENSORY:?exam demonstrates. reduced vibration lower extremity, reduced sharp/dull pin prick discrimination , reduced light touch sensation, 5.07 monofilament test performed at plantar aspects of 5 varied sites per foot shows sensation, absent, at Forefoot, B/L, Pt still relates cont.?anesthesia , tingling, burning, anesthesia.?Vascular: ?DP PULSES (B):?2/4, B/L.?PT PULSES (B):?2/4, B/L.?Nails: ?NAILS are:?elongated,overgrown,dystrophic,greater than 3mm thick,discolored and friable with crumbly malodorous subungual debris, , with dull to no pain on palpation due to neuropathy , , 1,3-5 Left foot , 1-5 Right foot.?Dermatologic: ?SKIN FINDINGS:?Skin exam reveals Keratotic lesion(s) located , SUB MTH (s) , 1 , B/L.?VERRUCA:?Reveals a Single , multi-loculated , mosaically patterned, round, raised, flat-topped, petechial bleeding papule(s), with cauliflower appearance and interruption of skin lines, pain to lateral compression, and size estimated at 4mm diameter , 1st toe , RIGHT.?Ingrown Nail: ?INSPECTION:?Reveals nail incurvation, dull pain on palpation due to neuropathy, groove hypertrophy , Bilateral nail borders , T1.?General Examination: ?GENERAL APPEARANCE:?Reveals a pleasant, alert, well nourished, well- developed, well hydrated individual, who demonstrates proper attention to hygiene/body habitus, and is in no acute distress, Pt serves as own historian for office visit today.?ORIENTED:?person, place, and time.?FOOT EXAM:?Lower Extremity Neurological Exam performed:?Yes ?Visual exam of foot performed:?Yes ?Date?06/06/2024 ?Sensory testing performed:?sensations diminished ?Sensory and motor testing performed:?sensations diminished ?Pedal pulse taking performed:?2+??? Assessment: * Assessment: 1.?Type 2 diabetes mellitus with diabetic polyneuropathy - E11.42???2.?Tinea unguium - B35.1???3.?Plantar wart - B07.0 (Primary)???4.?Pain in right foot - M79.671???5.?Ingrown nail - L60.0??? Plan: * Treatment: 2.?Type 2 diabetes mellitus with diabetic polyneuropathy?Procedure: 24901-JXLP SKIN LESIONS, 2 TO 4 3.?Tinea unguium?Procedure: 86632-MVECJIL NAIL, 6 OR MORE 4.?Ingrown nail?Procedure: 19615-Ktuctplr Plate * Procedures:?Debride Nail 6-10:?Nail debridement?Performance of this nail treatment by a nonprofessional would put this patients foot and overall health at risk. Therefore, nail debridement was performed extensively to reduce/remove overall nail length, girth, thickness, subungual debris, and necrotic tissue, by manual and/or electrical means through the use of a nail nipper and/or dremel-type crystal grinder, to a more viable healthy nail plate or bed tissue 6-10. Silver nitrate used for any petechial bleeding as necessary. Definitive antifungal treatment options have been reviewed and discussed with the patient. The patient chooses, no pharmaceutical tx - 50163.?Keratoma Treatment:?Parring or Cutting of Benign Hyperkeratotic Lesion(s)?41358 (2-4 Lesions) - The Benign hyperkeratotic lesions, as described above were pared, and/or cut utilizing a sterile #15 blade, tissue nippers, and/or dremel.?Nail Avulsion:?Location?Bilateral nail border , T1.?Anesthesia?was deferred - NEUROPATHY: patient has medically documented neuropathic condition affecting sensation.?Procedure?A fine sterile elevator was placed between the eponychium, nail fold, and nail plate to separate the structures. A sterile nail splitter, and/or sterile 316 blade, was then used to longitudinally section the nail along its entire length through the eponychium to the area under the nail fold. The offending portion of nail was from the nail bed with a rolling action and then removed with a hemostat. No underlying bone was identified. There was minimal bleeding as hemostasis was achieved through the temporary use of either a digital tourniquet or the aforementioned local with epinephrine. A bacitracin sterile dressing was applied. Local wound aftercare instructions were discussed and dispensed. The patient was informed of both conservative and future surgical procedures to prevent recurrence. Tylenol or Motrin was recommended for pain or discomfort (51232) , DIABETES: Matricectomy deferred at this time due to diabetes risk.?Wart Treatment:?Procedure?Verrucae were debrided to pin-point bleeding margins with sterile 15 surgical blade - 54009 , silver nitrate chemocautery applied , DIABETES: Any more invasive procedure to wart deferred due to diabetes risk.? * Procedure Codes:?17622 Avuls ion Plate, Modifiers: T1 65207 Wart Destruction, 1- 14, Modifiers: T5 99753 DEBRIDE NAIL, 6 OR MORE, Modifiers: XS 68776 TRIM SKIN LESIONS, 2 TO 4, Modifiers: XS * Follow Up:?2 Weeks,prn * Images: * Sign off status: Completed true * Provider:?Arielle Agarwal DPM Date:?2023 Generated for Sue yarbrough/Alessandra/eTransmitting on:?12/18/2024 04:31 PM EDT History and Physical Notes * HPI (History of Present Illness) Category Sub-Category Detail Notes Category Not es Ingrown toenail Location: Second toe , Left foot At Risk footcare Pt States Last PCP Visit: Date: 4 Examination Category Sub-Category Detail Notes Category Not es Ingrown Nail INSPECTION: Reveals nail inc urvation, dull pain on palpation due to neuropathy, groove hypertrophy , Bilateral nail borders , T1 Neurological SENSORY: exam demonstrate s. reduced vibration lower extremity, reduced sharp/dull pin prick discrimination , reduced light touch sensation, 5.07 monofilament test performed at plantar aspects of 5 varied sites per foot shows sensation, absent, at Forefoot, B/L, Pt still relates cont. anesthesia , tingling, burning, anesthesia Dermatologic SKIN FINDINGS: Skin exam reveal s Keratotic lesion(s) located , SUB MTH (s) , 1 , B/L VERRUCA: Reveals a Single , m ulti-loculated , mosaically patterned, round, raised, flat-topped, petechial bleeding papule(s), with cauliflower appearance and interruption of skin lines, pain to lateral compression, and size estimated at 4mm diameter , 1st toe , RIGHT General Examination GENERAL APPEARANCE: Reveals a pleasant, alert, well nourished, well-developed, well hydrated individual, who demonstrates proper attention to hygiene/body habitus, and is in no acute distress, Pt serves as own historian for office visit today FOOT EXAM: Lower Extremity Neurological Exa m performed:: Yes Visual exam of foot performed:: Yes Date: 06/06/2024 Sensory testing performed:: sensations d iminished Sensory and motor testing performed:: se nsations diminished Pedal pulse taking performed:: 2+ ORIENTED: person, place, and t shanta Ophthalmology Referral DIABETES EYE EXAM Diabetic Retinopa thy Screening:: Yes Findings of Diabetic Eye Exam:: no retin opathy Vascular DP PULSES (B): 2/4, B/L PT PULSES (B): 2/4, B/L Nails NAILS are: elongated,overgr own,dystrophic,greater than 3mm thick,discolored and friable with crumbly malodorous subungual debris, , with dull to no pain on palpation due to neuropathy , , 1,3-5 Left foot , 1-5 Right foot
--- OUTSIDE RECORDS SUMMARY | 2024-12-18 16:31 | XMS_ITS ---
Author Organization [facility] [employer] [facility] Address [address] [facility] [place] [address] Care Team Providers Care Straightener Hand Name Role Phone Elke Franco Primary Care Provider Unavaila ble Black, Arielle Unavailable [phone] Allergies Allergen (clinical drug ingredient) Drug/Non Drug Allergy documented on EMR Reaction Allergy Type Onset Date Status amoxicillin Amoxicillin Unknown Drug Allergy Act dana REASON FOR VISIT At Risk Footcare, Wart(s), Toe Irritation Medications Medication SIG (Take, Route, Frequency, Duration) Notes Start Date End Date Status Tylenol Active Montelukast Sodium 10 MG 1 tablet Orally Once a day for 30 day(s) Active Omeprazole 20 MG 1 capsule 30 minutes before morning meal Orally Once a day for 30 day(s) Active Triamcinolone Acetonide 55 MCG/ACT 1 spray in each nostril Nasally Once a day for 30 day(s) Active Tamsulosin HCl 0.4 MG 1 capsule Orally O nce a day for 30 day(s) Active glipiZIDE XL Active Losartan Potassium A ctive Clopidogrel Bisulfate Active Metoprolol Tartrate Active Atorvastatin Calcium Active Accu-Chek Joan Plus as directed once a day Not-Taking metFORMIN HCl Not-Ta melina Lisinopril 5 MG 1 tablet Orally Once a day for 30 day(s) Not-Taking Fluticasone Furoate 200 MCG/ACT 1 puff Inhalation Once a day Not-Taking Amiodarone HCl 200 MG 1 tablet Orally On ce a day Active Ciclopirox Olamine 0.77 % 1 application to affected area Externally to feet Twice a day for 30 days Not-Taking Extra Depth Orthopedic Shoes (1 Pair) with Customized Heat Molded Multidensity Innersoles (3 Pair) as directed Dx: NIDDM/Polyneuropathy (E11.42), Hammertoe Foot Deformity (M20.41,M20.42), Preulcerative Skin Lesion(s) (L85.1 08/13/2020 Not-Taking Antibiotic Not-Takin g Cephalexin 500 MG 1 capsule Orally nilsa ry 8 hrs for 10 days Not-Taking Cephalexin 500 MG 1 capsule Orally Thr ee times a day for 10 day(s) 02/29/2024 Active Extra Depth Orthopedic Shoes (1 Pair) with Customized Heat Molded Multidensity Innersoles (3 Pair) as directed Dx: NIDDM/Polyneuropathy (E11.42), Hammertoe Foot Deformity (M20.41,M20.42), Preulcerative Skin Lesion(s) (L85.1 10/03/2022 Active Eliquis 5 MG Oral for 90 Days Active Social History Tobacco Use: Social History Observation Description Date Details (start date - stop date) Never Smoker NA - NA Tobacco Use/Smoking Question Answer Notes Are you a: nonsmoker Additional Findings: Tobacco Non-User Current no n-smoker Tobacco use other than smoking: Question Answer Notes Are you an other tobacco user? No Vital Signs Height 5 ft 7.5in in 12/16/2024 Weight 205 lbs 12/16/2024 BMI 31.63 kg/m2 12/16/2024 Blood pressure systolic 130 mm Hg 12/17/19 25 Blood pressure diastolic 80 mm Hg 025 Procedures Procedure Date Ordered Date Performed Result Body Sit e 92906-OLVLBUX NAIL, 6 OR MORE 12/16/2024 N/A 52343-Jsrr Destruction, 1-14 12/16/2024 N/A 67082-Zqbstrgh Plate 12/16/2024 N/A 55047-BYQO SKIN LESIONS, 2 TO 4 12/16/2024 N/A Encounters Encounter Location Date Provider Diagnosis [facility] [address] [place] [address] 12/16/2024 Arielle Black Type 2 diabetes mellitus with diabetic polyneuropathy E11.42 ; Plantar wart B07.0 ; Tinea unguium B35.1 ; Pain in right foot M79.671 ; Ingrown nail L60.0 ; Other hammer toe(s) (acquired), right foot M20.41 and Other hammer toe(s) (acquired), left foot M20.42 Assessments Encounter Date Diagnosis (ICD Code) Assessment Notes Treatment Notes Treatment Clinical Notes Section Notes 12/16/2024 Type 2 diabetes mellitus with diabetic polyneuropathy (ICD-10 - E11.42) 12/16/2024 Plantar wart (ICD-10 - B07.0) 12/16/2024 Tinea unguium (ICD-10 - B35.1) 12/16/2024 Pain in right foot (ICD-10 - M79.671) 12/16/2024 Ingrown nail (ICD-10 - L60.0) 12/16/2024 Other hammer toe(s) (acquired), right foot (ICD-10 - M20.41) Response to treatment,Impro vement 12/16/2024 Other hammer toe(s) (acquired), left foot (ICD-10 - M20.42) Response to treatment,Impro vement Plan Of Treatment Pending Test Test Name Order Date 14497-IYBLWVG NAIL, 6 OR MORE 12/16/2024 12265-Sajd Destruction, 1-14 12/16/2024 43733-Yfjngtdf Plate 12/16/2024 35499-VJWQ SKIN LESIONS, 2 TO 4 12/17/19 25 Next Appt Details Follow Up: 2 Weeks, Reason: Provider Name:Arielle Agarwal , 03/24/2025 09:00:00 AM, [address] [place], [address], Procedure Notes * Category Sub-Category Detail Notes Wart Treatment Procedure Verrucae were de brided to pin-point bleeding margins with sterile 15 surgical blade - 94480 , silver nitrate chemocautery applied , DIABETES: [...] Motrin was recommended for pain or discomfort (66656) , DIABETES: Matricectomy deferred at this time due to diabetes risk Anesthesia was deferred - NEURO JUAN: patient has medically documented neuropathic condition affecting sensation Location Bilateral nail borde r ,, T7 Debride Nail 6-10 Nail debridement Due to the cl inical pathology outlined in the exam findings, performance of this nail treatment is medically necessary as its management by an unskilled/untrained nonprofessional would put this patients foot and overall health at risk. Therefore, debridement to affected nail(s), as described in exam ( TA, T1, T2, T3, T4, T5, T7, T8, T9, ), was performed exclusively by the physician of record to reduce/remove overall nail length, girth, thickness, subungual debris, and necrotic tissue, by manual and/or electrical means through the use of a nail nipper and/or dremel-type chicle grinder feeder, to a more viable healthy nail plate or bed tissue 6-10 nails in total. Silver nitrate was used for any petechial bleeding as necessary. Definitive antifungal treatment options, both pharmaceutical and surgical, have been reviewed and discussed with the patient. The patient solely prefers the use of intermittent/as needed professional debridement services for their nail condition and understands the need for additional periodic treatments to maintain effectiveness in symptomatic relief - 97251 Keratoma Treatment Parring or Cutting o f Benign Hyperkeratotic Lesion(s) (-56) 2-4 Lesions - Due to the at risk nature of the patients medical condition as documented in the exam findings, performance of this keratoderma treatment is medically necessary as its management by an unskilled/untrained nonprofessional would put this patients foot and overall health at risk. Therefore, the benign hyperkeratotic lesions, ( 2) in total, locations as stated and described in the exam (SUB MTH (s) , 1 , B/L ), were pared, and/or cut utilizing a sterile 15 blade, tissue nippers, and/or power dremel instrumentation by the physician of record - 25674 Progress Notes * Gonzalez BLACKMAN JDOB: [birth year] (79 yo M)Acc No.[id number]:12/16/2024 Progress Note Patient:?Gonzalez BLACKMAN Provider:?Arielle Agarwal DPM :1945???Age:79 Y???Sex:Male Tritsan e:12/16/2024 Address:[address], [place], [id number] Pcp:Elke Franco Subjective: * Chief Complaints: * ???At Risk FootcareWart(s)To e Irritation * HPI: ???At Risk footcare:?Pt States Last PCP Visit:?Date?11/13/2024 ???Toe pain:?Treatments:?Rx shoes .? * ROS:?General/Constitutional:?Nausea?denies.?Vomiting?denies.?Hunger Thirst?denies.?Loss appetite?denies,.?Chills?denies,?.?Fatigue?denies.?Fever?denies,?.?Night Sweats?denies.?Unexplained weight loss?denies.?Unexplained weight gain?denies.?Ophthalmologic:?Blurred vision?denies.?Red eye?denies.?HEENTM:?Dentures?denies.?Dizziness?denies.?Glasses/contacts?admits.?Retinopathy?den ies.?Blurred/double vision?denies.?TMJ?denies.?Discharge/drainage?denies.?Implants?denies.?Sore throat?denies.?Dental implants?denies.?Hard of hearing ?denies.?Difficulty chewing/swallowing/speaking?denies.?Nose bleeds?denies.?Sore mouth?denies,?.?Swollen glands?denies.?Respiratory:?On O xygen?denies.?Pneumonia/pleurisy?denies.?Bronchitis?denies.?Emphysema?denies.?Co ughing?denies,.?Cough blood?denies.?Shortness of breath?admits,.?Wheezing?admits,?.?Cardiovascular:?Pacemaker?denies.?MVP?denies.?WPW?denies.?CHF?denies.?Heart attack?denies.?Septal defect?denies.?Rapid beat?denies.?Chest pain ?denies,?.?Atrial Fib.?denies,?.?Murmur/Palpitations?denies.?Gastrointestinal:?Hemorrhoids?denies.?Stomach/Abdominal pain?denies.?Dark blood stool?denies.?Irritable bowel ?denies.?Constipation?denies.?Diarrhea?denies, denies.?Vomiting?denies.?Hematology:?Swelling?denies.?Clots?denies.?Varicose Veins?denies.?Bruising?denies.?Bleeding problem?denies.?Genitourinary:?Blood urine?denies,.?Frequent/Painfu/urination/bladder control?denies,?.?Kidney stones?denies.?Infection (UTI)?denies.?Nephropathy?denies.?sex trans dis (STD)?denies.?Prostate?admits.?Musculoskeletal:?Hammertoes?admits.?Bunions?denies.?Back Pain?denies.?Muscle Cramps/ Resting?denies.?Muscle cramps / walking?denies.?Generalized aches and pains?admits.?Painful joints?denies.?Swollen joints?denies.?Weakness?denies.?Integ.:?[place]?denies.?Scars?denies.?Corns/calluses?denies.?Ingrown nails?admits.?Painful nails?, denies.?Open Sores?denies.?Itching?denies.?Rashes?denies,.?Neurologic:?Difficulty sleeping?denies.?Brain disorder?denies.?Numbness?denies.?Balance trouble?denies.?Confusion?denies, d enies.?Fainting/blackouts?denies.?Headache?denies.?Tingling?denies.?Tremors?makayla es.? * Medical History:? * Surgical History:?left knee [...] [facility] Rehab. ?Marital status: . ?Occupation: Retired,- [employer].. * Medications:?TakingAmiodaron e HCl 200 MG [...] reviewed and reconciled with the patient * Allergies:?Amoxicillinyes[Alexis piña Verified] Objective: * Vitals:?Ht: 5 ft 7.5in, Wt: 205, BMI: 31.63, Shoe size: 12, BP: 130/80 mm Hg, BS: not taken, Ht-cm: 171.45 cm, Wt-k.99 kg. * ???Past Orders: ???Lab:HEMOGLOBIN A1C (GLYCO HEMOGLOBIN) (Order Date - 01/02/2024) (Collection Date & Time - 01/02/2024 10:03 AM) ? Value Reference Range ?HEMOGLOBIN A1C % (HH) 6.5 * Examination: ???Ophthalmology Referral: ?DIABETES EYE EXAM?Procedure Performed:?Yes ?Date of Exam Performed?09/04/2024 ?Findings of Diabetic Eye Exam:?no retinopathy?CQM Exceptions:: ?Hemoglobin A1c not performed?Reason:?No reason specified?General Examination: ?GENERAL APPEARANCE:?Reveals a pleasant, alert, well nourished, well- developed, well hydrated individual, who demonstrates proper attention to hygiene/body habitus, and is in no acute distress, Pt serves as own historian for office visit today.?Footwear Evaluation?Footwear Evaluation performed:?Yes?Neurological: ?SENSORY:?exam demonstrates. reduced vibration lower extremity, reduced sharp/dull pin prick discrimination , reduced light touch sensation, 5.07 monofilament test performed at plantar aspects of 5 varied sites per foot shows sensation, absent, at Forefoot, B/L, Pt still relates cont.?anesthesia , tingling, burning, anesthesia.?Orthopedic: ?FOOTWEAR EVALUATION:?good condition, exhibit proper fit and accommodation for pedal deformities. OT were inspected and noted to be worn, but in good condition giving proper support at the present time.?Dermatologic: ?SKIN FINDINGS:?Skin exam reveals Keratotic lesion(s) located , SUB MTH (s) , 1 , B/L.?VERRUCA:?Reveals a Single , multi-loculated , mosaically patterned, round, raised, flat-topped, petechial bleeding papule(s), with cauliflower appearance and interruption of skin lines, pain to lateral compression, and size estimated at 2mm diameter , 1st toe , RIGHT.?Vascular: ?DP PULSES (B):?2/4, B/L.?PT PULSES (B):?2/4, B/L.?Nails: ?NAILS are:?elongated,overgrown,dystrophic,greater than 3mm thick,discolored and friable with crumbly malodorous subungual debris, , with dull to no pain on palpation due to neuropathy ?TA, T1, T2, T3, T4, T5,? T7, T8, T9.?Ingrown Nail: ?INSPECTION:?Reveals nail incurvation, dull pain on palpation due to neuropathy, groove hypertrophy, Bilateral nail borders, , T7.? Assessment: * Assessment: 1.?Type 2 diabetes mellitus with diabetic polyneuropathy - E11.42 (Primary)???2.?Plantar wart - B07.0???3.?Tinea unguium - B35.1???4.?Pain in right foot - M79.671???5.?Ingrown nail - L60.0???6.?Other hammer toe(s) (acquired), right foot - M20.41???Specify :Chronic problem, Stable (1=3,2=4)???Notes :Response to treatment,Improvement???7.?Other hammer toe(s) (acquired), left foot - M20.42???Specify :Chronic problem, Stable (1=3,2=4)???Notes :Response to treatment,Improvement??? Plan: * Treatment: 2.?Plantar wart?Procedure: 04606-Dzjg Destruction, 1-14 3.?Tinea unguium?Procedure: 35948-YUYZDSE NAIL, 6 OR MORE 4.?Ingrown nail?Procedure: 26640-Inpbpucy Plate * Procedures:?Debride Nail 6-10:?Nail debridement?Due to the clinical pathology outlined in the exam findings, performance of this nail treatment is medically necessary as its management by an unskilled/untrained nonprofessional would put this patients foot and overall health at risk. Therefore, debridement to affected nail(s), as described in exam ( TA, T1, T2, T3, T4, T5, T7, T8, T9, ), was performed exclusively by the physician of record to reduce/remove overall nail length, girth, thickness, subungual debris, and necrotic tissue, by manual and/or electrical means through the use of a nail nipper and/or dremel-type chicle grinder feeder, to a more viable healthy nail plate or bed tissue 6- 10 nails in total. Silver nitrate was used for any petechial bleeding as necessary. Definitive antifungal treatment options, both pharmaceutical and surgical, have been reviewed and discussed with the patient. The patient solely prefers the use of intermittent/as needed professional debridement services for their nail condition and understands the need for additional periodic treatments to maintain effectiveness in symptomatic relief - 06051.?Keratoma Treatment:?Parring or Cutting of Benign Hyperkeratotic Lesion(s)?(-56) 2-4 Lesions - Due to the at risk nature of the patients medical condition as documented in the exam findings, performance of this keratoderma treatment is medically necessary as its management by an unskilled/untrained nonprofessional would put this patients foot and overall health at risk. Therefore, the benign hyperkeratotic lesions, ( 2) in total, locations as stated and described in the exam (SUB MTH (s) , 1 , B/L ), were pared, and/or cut utilizing a sterile 15 blade, tissue nippers, and/or power dremel instrumentation by the physician of record - 55863.?Nail Avulsion:?Location?Bilateral nail border ,, T7.?Anesthesia?was deferred - NEUROPATHY: patient has medically documented [...] Motrin was recommended for pain or discomfort (28453) , DIABETES: Matricectomy deferred at this time due to diabetes risk.?Wart Treatment:?Procedure?Verrucae were debrided to pin-point bleeding margins with sterile 15 surgical blade - 41880, silver nitrate chemocautery applied , DIABETES: Any more invasive procedure to wart deferred due to diabetes risk.? * Procedure Codes:?77865 Avuls ion Plate, Modifiers: T6 92120 Wart Destruction, 1- 14, Modifiers: T5 15054 DEBRIDE NAIL, 6 OR MORE, Modifiers: XS 40278 TRIM SKIN LESIONS, 2 TO 4, Modifiers: XS * Preventive Medicine:? ??Counseling:?Discussion:?-13: Office or other outpatient visit for the evaluation and management of an established patient, which required a medically appropriate history and/or examination and LOW level of DECISION MAKING for: 1 STABLE ACUTE UNCOMPLICATED PROBLEM, 2 OR MORE MINOR PROBLEMS, OR 1 STABLE CHRONIC PROBLEM, THAT POSE(S) A LOW RISK FOR MORBIDITY/MORTALITY. The visit on the day of the encounter encompassed interpreting the data and educating the patient as to the nature of their condition, treatment options available according to their individual PMH, meds, allergies, and overall health/living conditions, as well as any potential risks or complications that may occur from a failure to adhere to, and participate in, the recommended course of therapy. The discussion included a complete verbal, and/or written explanation of the examination results, any x-rays taken, the proposed diagnosis, and outline of the treatment plan. A schedule for future care needs was also explained. The patient verbalized an understanding of the instructions at this time and agreed to be an active participant in their treatment. If the patient should think of any questions or concerns after the visit, I have encouraged the patient to call the office.?Shoe Gear Counseling:?A thorough inspection of the patients Rxed shoegear and inserts was performed and findings communicated. We reviewed the many important medical advantages for adhering to regularly wearing these shoe and insert accomidative devices daily as well as reviewed the fact that a failure in accepting these recommedations may be deleterious, unable to prevent, and disadvantagely result in, many pedal complications such as skin irritation, skin ulceration, infection, and even loss of toe/foot/leg/or even their life. Time was also spent reviewing the proper footcare techniques including daily skin moisturization, daily foot inspection for any interruption in skin integrity, open lesions, or sign of infection such as redness/malodor/drainage/swelling as well as daily shoe inspection for the presence of internal foreign bodies and shoe as well as insert wear. Patient questions re: shoes, inserts, and self foot inspections were answered to their satisfaction as the patient verbally confirmed a full understanding of the above information.? ??Screening/Special Tests:?Fall Risk?Screening:?No falls in the past year ?FALLS: Screening for Future Fall Risk?Have you had any falls with injury in the past year??No * Follow Up:?2 Weeks * Images: * Sign off status: Completed true * Provider:?Arielle Agarwal DPM Date:?2024 Generated for Dustyi zenon/Alessandra/eTransmitting on:?12/18/2024 04:31 PM EDT History and Physical Notes * HPI (History of Present Illness) Category Sub-Category Detail Notes Category Not es Toe pain Treatments: Rx shoes At Risk footcare Pt States Last PCP Visit: Date: 5 Examination Category Sub-Category Detail Notes Category Not es Ingrown Nail INSPECTION: Reveals nail inc urvation, dull pain on palpation due to neuropathy, groove hypertrophy, Bilateral nail borders, , T7 Neurological SENSORY: exam demonstrate s. reduced vibration [...] to lateral compression, and size estimated at 2mm diameter , 1st toe , RIGHT Orthopedic FOOTWEAR EVALUATION: good condit ion, exhibit proper fit and accommodation for pedal deformities. OT were inspected and noted to be worn, but in good condition giving proper support at the present time General Examination GENERAL APPEARANCE: Reveals a pleasant, alert, well nourished, well-developed, well hydrated individual, who demonstrates proper attention to hygiene/body habitus, and is in no acute distress, Pt serves as own historian for office visit today Footwear Evaluation Footwear Evaluation performe d:: Yes Ophthalmology Referral DIABETES EYE EXAM Procedure Perform ed:: Yes ?Date of Exam Performed: 09/04/2024 Findings of Diabetic Eye Exam:: no retin opathy Vascular DP PULSES (B): 2/4, B/L PT PULSES (B): 2/4, B/L Nails NAILS are: elongated,overgr own,dystrophic,greater than 3mm thick,discolored and friable with crumbly malodorous subungual debris, , with dull to no pain on palpation due to neuropathy TA, T1, T2, T3, T4, T5, T7, T8, T9 CQM Exceptions: Hemoglobin A1c not performed Reason:: No reason specified
--- OUTSIDE RECORDS SUMMARY | 2024-12-18 16:31 | XMS_ITS ---
Author Organization [facility] Address [address] [place], [place] [address] Care Team Providers Care Pastry Baker Name Role Phone Elke Franco Primary Care Provider Unavaila ble Black, Arielle Unavailable [phone] Allergies Allergen (clinical drug ingredient) Drug/Non Drug Allergy documented on EMR Reaction Allergy Type Onset Date Status amoxicillin Amoxicillin Unknown Drug Allergy Act dana REASON FOR VISIT At Risk Footcare, Wart(s) Medications Medication SIG (Take, Route, Frequency, Duration) Notes Start Date End Date Status Ciclopirox Olamine 0.77 % 1 application to affected area Externally to feet Twice a day for 30 days Not-Taking Fluticasone Furoate 200 MCG/ACT 1 puff Inhalation Once a day Not-Taking Accu-Chek Joan Plus as directed once a day Not-Taking Lisinopril 5 MG 1 tablet Orally Once a day for 30 day(s) Not-Taking metFORMIN HCl Not-Ta melina Cephalexin 500 MG 1 capsule Orally nilsa [...] (M20.41,M20.42), Preulcerative Skin Lesion(s) (L85.1 08/13/2020 Not-Taking Triamcinolone Acetonide 55 MCG/ACT 1 spray in each nostril Nasally Once a day for 30 day(s) Active Tylenol Active Extra Depth Orthopedic Shoes (1 Pair) with Customized Heat Molded Multidensity Innersoles (3 Pair) as directed Dx: NIDDM/Polyneuropathy (E11.42), Hammertoe Foot Deformity (M20.41,M20.42), Preulcerative Skin Lesion(s) (L85.1 10/03/2022 Active Omeprazole 20 MG 1 capsule 30 minutes before morning meal Orally Once a day for 30 day(s) Active Montelukast Sodium 10 MG 1 tablet Orally Once a day for 30 day(s) Active Clopidogrel Bisulfate Active Losartan Potassium A ctive Metoprolol Tartrate Active glipiZIDE XL Active Tamsulosin HCl 0.4 MG 1 capsule Orally O nce a day for 30 day(s) Active Atorvastatin Calcium Active Amiodarone HCl 200 MG 1 tablet Orally On ce a day Active Social History Tobacco Use: Social History Observation Description Date Details (start date - stop date) Never Smoker NA - NA Tobacco Use/Smoking Question Answer Notes Are you a: nonsmoker Additional Findings: Tobacco Non-User Current no n-smoker Tobacco use other than smoking: Question Answer Notes Are you an other tobacco user? No Vital Signs Height 5 ft 7.5in in 09/16/2024 Weight 207 lbs 09/16/2024 BMI 31.94 kg/m2 09/16/2024 Blood pressure systolic 130 mm Hg 09/16/19 25 Blood pressure diastolic 83 mm Hg 025 Procedures Procedure Date Ordered Date Performed Result Body Sit e 48507-KBPVKUK NAIL, 6 OR MORE 09/16/2024 N/A 64950-Miot Destruction, 1-14 09/16/2024 N/A 59906-Fspglefz Plate 09/16/2024 N/A 22801-KZQX SKIN LESIONS, 2 TO 4 09/16/2024 N/A Encounters Encounter Location Date Provider Diagnosis [facility] [place] [address] [place] [address] 09/16/2024 Arielle Black Type 2 diabetes mellitus with diabetic polyneuropathy E11.42 ; Plantar wart B07.0 ; Tinea unguium B35.1 ; Pain in right foot M79.671 and Ingrown nail L60.0 Assessments Encounter Date Diagnosis (ICD Code) Assessment Notes Treatment Notes Treatment Clinical Notes Section Notes 09/16/2024 Type 2 diabetes mellitus with diabetic polyneuropathy (ICD-10 - E11.42) 09/16/2024 Plantar wart (ICD-10 - B07.0) 09/16/2024 Tinea unguium (ICD-10 - B35.1) 09/16/2024 Pain in right foot (ICD-10 - M79.671) 09/16/2024 Ingrown nail (ICD-10 - L60.0) Plan Of Treatment Pending Test Test Name Order Date 31467-ZZCZUGN NAIL, 6 OR MORE 09/16/2024 54746-Rztd Destruction, 1-14 09/16/2024 33930-Iyhsagrl Plate 09/16/2024 72328-LZVZ SKIN LESIONS, 2 TO 4 09/16/19 25 Next Appt Details Follow Up: 2 Weeks, Reason: Provider Name:Arielle Agarwal , 03/24/2025 09:00:00 AM, [address] [place] [address], [phone], Procedure Notes * Category Sub-Category Detail Notes Wart Treatment Procedure Verrucae were de brided to pin-point bleeding margins with sterile 15 surgical blade - 66708 , silver nitrate chemocautery applied , DIABETES: [...] Motrin was recommended for pain or discomfort (24620) , DIABETES: Matricectomy deferred at this time due to diabetes risk Anesthesia was deferred - NEURO JUAN: patient has medically documented neuropathic condition affecting sensation Location Bilateral nail borde r , T6 Debride Nail 6-10 Nail debridement Due to [...] use of a nail nipper and/or dremel-type card grinder helper, to a more viable healthy nail plate [...] to maintain effectiveness in symptomatic relief - 69914 Keratoma Treatment Parring or Cutting o f [...] instrumentation by the physician of record - 21588 Progress Notes * Gonzalez BLACKMANDOB: [birth year] (79 yo M)Acc No.[id number]:09/16/2024 Progress Note Patient:?MARTY Gonzalez Ziegler Provider:?Arielle Agarwal DPM :1945???Age:79 Y???Sex:Male Tristan e:09/16/2024 Address:[address], [place], [id number] Pcp:Elke Franco Subjective: * Chief Complaints: * ???At Risk FootcareWart(s) * HPI: ???At Risk footcare:?Pt States Last PCP Visit:?Date?07/26/2024 * ROS:?General/Constitutional:?Nausea?denies.?Vomiting?denies.?Hunger Thirst?denies.?Loss appetite?denies,.?Chills?denies,?.?Fatigue?denies.?Fever?denies,?.?Night Sweats?denies.?Unexplained weight loss?denies.?Unexplained weight gain?denies.?Ophthalmologic:?Blurred vision?denies.?Red eye?denies.?HEENTM:?Dentures?denies.?Dizziness?denies.?Glasses/contacts?admits.?Retinopathy?den ies.?Blurred/double vision?denies.?TMJ?denies.?Discharge/drainage?denies.?Implants?denies.?Sore throat?denies.?Dental implants?denies.?Hard of hearing ?denies.?Difficulty chewing/swallowing/speaking?denies.?Nose bleeds?denies.?Sore mouth?denies,?.?Swollen glands?denies.?Respiratory:?On O xygen?denies.?Pneumonia/pleurisy?denies.?Bronchitis?denies.?Emphysema?denies.?Co ughing?denies,.?Cough blood?denies.?Shortness of breath?admits,.?Wheezing?admits,?.?Cardiovascular:?Pacemaker?denies.?MVP?denies.?WPW?denies.?CHF?denies.?Heart attack?denies.?Septal defect?denies.?Rapid beat?denies.?Chest pain ?denies,?.?Atrial Fib.?denies,?.?Murmur/Palpitations?denies.?Gastrointestinal:?Hemorrhoids?denies.?Stomach/Abdominal pain?denies.?Dark blood stool?denies.?Irritable bowel ?denies.?Constipation?denies.?Diarrhea?denies, denies.?Vomiting?denies.?Hematology:?Swelling?denies.?Clots?denies.?Varicose Veins?denies.?Bruising?denies.?Bleeding problem?denies.?Genitourinary:?Blood urine?denies,.?Frequent/Painfu/urination/bladder control?denies,?.?Kidney stones?denies.?Infection (UTI)?denies.?Nephropathy?denies.?sex trans dis (STD)?denies.?Prostate?admits.?Musculoskeletal:?Hammertoes?admits.?Bunions?denies.?Back Pain?denies.?Muscle Cramps/ Resting?denies.?Muscle cramps / walking?denies.?Generalized aches and pains?admits.?Painful joints?denies.?Swollen joints?denies.?Weakness?denies.?Integ.:?[place]?denies.?Scars?denies.?Corns/calluses?denies.?Ingrown nails?admits.?Painful nails?admits.?Open Sores?denies.?Itching?denies.?Rashes?denies,.?Neurologic:?Difficulty sleeping?denies.?Brain disorder?denies.?Numbness?denies.?Balance trouble?denies.?Confusion?denies, d enies.?Fainting/blackouts?denies.?Headache?denies.?Tingling?denies.?Tremors?makayla es.? [...] than smoking?Are you an other tobacco user??No * Medications:?TakingAmiodaron e HCl 200 MG Tablet [...] Objective: * Vitals:?Ht: 5 ft 7.5in, Wt: 207, BMI: 31.94, Shoe size: 12, BP: 130/83 mm Hg, BS: not taken, Ht-cm: 171.45 cm, Wt-k.89 kg. * Examination: ???CQM Exceptions:: ?Hemoglobin A1c not performed?Reason:?No reason specified?Ophthalmology Referral: ?DIABETES EYE EXAM?Procedure Performed:?Yes ?Date of Exam Performed?11/03/2023 ?Findings of Diabetic Eye Exam:?no retinopathy?Neurological: ?SENSORY:?exam [...] T1, T2, T3, T4, T5,? T7, T8, T9.?Dermatologic: ?SKIN FINDINGS:?Skin exam reveals Keratotic lesion(s) located , SUB MTH (s) , 1 , B/L.?VERRUCA:?Reveals a Single , multi-loculated , mosaically patterned, round, raised, flat-topped, petechial bleeding papule(s), with cauliflower appearance and interruption of skin lines, pain to lateral compression, and size estimated at 3mm diameter , 1st toe , RIGHT.?Ingrown Nail: ?INSPECTION:?Reveals nail incurvation, dull pain on palpation due to neuropathy, groove hypertrophy, Bilateral nail borders, T6.? Assessment: * Assessment: 1.?Plantar wart - B07.0???2. ?Type 2 diabetes mellitus with diabetic polyneuropathy - E11.42 (Primary)???3.?Tinea unguium - B35.1???4.?Pain in right foot - M79.671???5.?Ingrown nail - L60.0??? Plan: * Treatment: 2.?Plantar wart?Procedure: 56656-Zkrr Destruction, 1-14 3.?Tinea unguium?Procedure: 50626-FBYJCVF NAIL, 6 OR MORE 4.?Ingrown nail?Procedure: 55961-Rkmmpaqm Plate * Procedures:?Debride Nail 6-10:?Nail debridement?Due to [...] use of a nail nipper and/or dremel-type card grinder helper, to a more viable healthy nail plate [...] to maintain effectiveness in symptomatic relief - 59025.?Keratoma Treatment:?Parring or Cutting of Benign Hyperkeratotic Lesion(s)?(-56) [...] instrumentation by the physician of record - 29267.?Nail Avulsion:?Location?Bilateral nail border , T6.?Anesthesia?was deferred - NEUROPATHY: patient has medically documented [...] Motrin was recommended for pain or discomfort (47364) , DIABETES: Matricectomy deferred at this time due to diabetes risk.?Wart Treatment:?Procedure?Verrucae were debrided to pin-point bleeding margins with sterile 15 surgical blade - 86881, silver nitrate chemocautery applied , DIABETES: Any more invasive procedure to wart deferred due to diabetes risk.? * Procedure Codes:?92965 Avuls ion Plate, Modifiers: T6 57099 Wart Destruction, 1- 14, Modifiers: T5 45573 DEBRIDE NAIL, 6 OR MORE, Modifiers: XS 08868 TRIM SKIN LESIONS, 2 TO 4, Modifiers: XS * Preventive Medicine:? ??Screening/Special Tests:?Fall Risk?Assessment:?Performed ?Plan of Care:?Not documented, no reason specified ?Screening:?Two or more falls without injury in the past year ?FALLS: Screening for Future Fall Risk?Have you had two or more falls in the past year??Yes * Follow Up:?2 Weeks * Images: * Sign off status: Completed true * Provider:?Arielle Agarwal DPM Date:?2024 Generated for Sue yarbrough/Alessandra/Verna on:?12/18/2024 04:30 PM EDT History and Physical Notes * HPI (History of Present Illness) Category Sub-Category Detail Notes Category Not es At Risk footcare Pt States Last PCP Visit: Date: Examination Category Sub-Category Detail Notes Category Not es Ingrown Nail INSPECTION: Reveals nail inc urvation, dull pain on palpation due to neuropathy, groove hypertrophy, Bilateral nail borders, T6 Neurological SENSORY: exam demonstrate s. reduced vibration [...] to lateral compression, and size estimated at 3mm diameter , 1st toe , RIGHT Ophthalmology Referral DIABETES EYE EXAM Procedure Perform ed:: Yes ?Date of Exam Performed: 11/03/2023 Findings of Diabetic Eye Exam:: no retin [...]
--- OUTSIDE RECORDS SUMMARY | 2024-12-18 16:31 | XMS_ITS | Patient Health Record ---
[facility] Address [address] [facility] [facility] [place], [place] [address] Care Team Providers Care Telescope Maintenance Name Role Phone Elke Franco Primary Care Provider Unavaila rukhsana Agarwal, Arielle Unavailable [phone] Mukund Jang Unavailable [phone] Allergies Allergen (clinical drug ingredient) Drug/Non Drug Allergy documented on EMR Reaction Allergy Type Onset Date Status amoxicillin Amoxicillin Unknown Drug Allergy Act dana Results Component Value Reference Range Notes HEMOGLOBIN A1C (GLYCOHEMOGLO BIN) Reviewed date:12/16/2024 10:04:08 AM Interpretation: Performing Lab: Notes/Report: HEMOGLOBIN A1C % (HH) 6.5 Reason For Referral No Information Medications Medication SIG (Take, Route, Frequency, Duration) Notes Start Date End Date Status Extra Depth Orthopedic Shoes (1 Pair) with Customized Heat Molded Multidensity Innersoles (3 Pair) as directed Dx: NIDDM/Polyneuropathy (E11.42), Hammertoe Foot Deformity (M20.41,M20.42), Preulcerative Skin Lesion(s) (L85.1 10/03/2022 Active Tylenol Active Accu-Chek Joan Plus as directed once a day Not-Taking Montelukast Sodium 10 MG 1 tablet Orally Once a day for 30 day(s) Active metFORMIN HCl Not-Ta melina Omeprazole 20 MG 1 capsule 30 minutes before morning meal Orally Once a day for 30 day(s) Active Lisinopril 5 MG 1 tablet Orally Once a day for 30 day(s) Not-Taking Triamcinolone Acetonide 55 MCG/ACT 1 spray in each nostril Nasally Once a day for 30 day(s) Active Fluticasone Furoate 200 MCG/ACT 1 puff Inhalation Once a day Not-Taking Tamsulosin HCl 0.4 MG 1 capsule Orally O nce a day for 30 day(s) Active Ciclopirox Olamine 0.77 % 1 application to affected area Externally to feet Twice a day for 30 days Not-Taking glipiZIDE XL Active Extra Depth Orthopedic Shoes (1 Pair) with Customized Heat Molded Multidensity Innersoles (3 Pair) as directed Dx: NIDDM/Polyneuropathy (E11.42), Hammertoe Foot Deformity (M20.41,M20.42), Preulcerative Skin Lesion(s) (L85.1 08/13/2020 Not-Taking Losartan Potassium A ctive Antibiotic Not-Takin g Clopidogrel Bisulfate Active Cephalexin 500 MG 1 capsule Orally nilsa ry 8 hrs for 10 days Not-Taking Metoprolol Tartrate Active Cephalexin 500 MG 1 capsule Orally Thr ee times a day for 10 day(s) 02/29/2024 Active Atorvastatin Calcium Active Eliquis 5 MG Oral for 90 Days Active Amiodarone HCl 200 MG 1 tablet Orally On ce a day Active Immunizations Vaccine Route Administration Date Status Comme nts COVID-19 Pfizer BioNTech Vaccine Unknown 06/19/2021 Administered First Dose: 10/14/20 Second Dose: 11/21/2020 Influenza Unknown 06/19/2019 Administered Influenza Unknown 05/11/2020 Administered Influenza Unknown 06/04/2021 Administered Influenza Unknown 05/05/2022 Administered Influenza Unknown 06/05/2023 Administered Social History Tobacco Use: Social History Observation Description Date Details (start date - stop date) Never Smoker NA - NA Tobacco Use/Smoking Question Answer Notes Are you a: nonsmoker Additional Findings: Tobacco Non-User Current no n-smoker Alcohol Screen Question Answer Notes Did you have a drink contain ing alcohol in the past year? Yes How often did you have a dri nk containing alcohol in the past year? Monthly or less (1 point) Points 1 Interpretation Negative Tobacco use other than smoking: Question Answer Notes Are you an other tobacco user? No Problems Problem Type SNOMED Code ICD Code Onset Dates Problem Status W/U Status Risk Notes Problem Acquired hammer toe of right foot (0333872014936334) Other hammer toe(s) (acquired), right foot (M20.41) Active confirmed Response to treatment ,Improvem ent Problem Acquired hallux valgus (13602692) Hallux valgus (acquired), left foot (M20.12) Active confirmed Problem Acquired hammer toe of left foot (6678524798424674) Other hammer toe(s) (acquired), left foot (M20.42) Active confirmed Response to treatment ,Improve ent Problem Plantar wart (42620496) Plantar wart (B07.0) Active confirmed Problem Localized, primary osteoarthritis of the ankle and/or foot (395696976) Primary osteoarthritis, right ankle and foot (M19.071) Active confirmed Problem Acquired hallux valgus (84075999) Hallux valgus (acquired), right foot (M20.11) Active confirmed Problem Acquired hammer toe of right foot (4969180293408577) Other hammer toe(s) (acquired), right foot (M20.41) Active confirmed Problem Polyneuropathy due to type 2 diabetes mellitus (876760316) Type 2 diabetes mellitus with diabetic polyneuropathy (E11.42) Active confirmed Problem 673125094 Hallux rigidus of right foot (M20.21) Active confirmed Problem 75556586222662818 Skin ulcer of toe of left foot, limited to breakdown of skin (L97.521) Active confirmed Vital Signs Blood pressure diastolic 80 mm Hg 12/16/2024 Height 5 ft 7.5in in 12/16/2024 Blood pressure systolic 130 mm Hg 12/16/2024 Weight 205 lbs 12/16/2024 BMI 31.63 kg/m2 12/16/2024 Procedures Procedure Date Ordered Date Performed Result Body Sit e 88489-KKPILAT NAIL, 6 OR MORE 02/26/2024 N/A 08034-Ianm Destruction, 1-14 02/26/2024 N/A 08338 I&D ABSCESS- SIMPLE,SINGLE 02/26/2024 N/A 11773-JMWS SKIN LESIONS, 2 TO 4 02/26/2024 N/A 75285- Debride <25 sq cm 03/18/2024 N/A 94607-QLXMMVM NAIL, 6 OR MORE 06/06/2024 N/A 28317-Irsw Destruction, 1-14 06/06/2024 N/A 53434-Adfunaem Plate 06/06/2024 N/A 31604-YFZL SKIN LESIONS, 2 TO 4 06/06/2024 N/A 55722-TJNBGDY NAIL, 6 OR MORE 09/16/2024 N/A 91766-Nutc Destruction, 1-09/16/2024 N/A 16469-Htopjnwt Plate 09/16/2024 N/A 45236-SVCJ SKIN LESIONS, 2 TO 4 09/16/2024 N/A 34102-INJJSEA NAIL, 6 OR MORE 12/16/2024 N/A 91817-Qezm Destruction, 1-14 12/16/2024 N/A 22761-Ewbujgaz Plate 12/16/2024 N/A 43578-LRND SKIN LESIONS, 2 TO 4 12/16/2024 N/A Encounters Encounter Location Date Provider Diagnosis [address] [address] 02/26/2024 Arielle Black Type 2 diabetes mellitus with diabetic polyneuropathy E11.42 ; Plantar wart B07.0 ; Tinea unguium B35.1 ; Pain in right foot M79.671 and Abscess of toe, left L02.[address] [address] 03/01/2024 Arielle Black Cellulitis of toe of left foot L03.032 ; Palpable purpura D69.2 and Dermatitis, unspecified L30.[address] [address] 03/18/2024 Arielle Black Cellulitis of toe of left foot L03.032 ; Dermatitis, unspecified L30.9 and Skin ulcer of toe of left foot, limited to breakdown of skin L97.[address] [address] 06/06/2024 Arielle Black Type 2 diabetes mellitus with diabetic polyneuropathy E11.42 ; Plantar wart B07.0 ; Tinea unguium B35.1 ; Pain in right foot M79.671 and Ingrown nail L60.[address] [address] 09/16/2024 Arielle Black Type 2 diabetes mellitus with diabetic polyneuropathy E11.42 ; Plantar wart B07.0 ; Tinea unguium B35.1 ; Pain in right foot M79.671 and Ingrown nail L60.[facility] [address] 12/16/2024 Arielle Black Type 2 diabetes mellitus with diabetic polyneuropathy E11.42 ; Plantar wart B07.0 ; Tinea unguium B35.1 ; Pain in right foot M79.671 ; Ingrown nail L60.0 ; Other hammer toe(s) (acquired), right foot M20.41 and Other hammer toe(s) (acquired), left foot M20.[address] [address] 02/29/2024 Mukund Jang [address] [address] 02/29/2024 Mukund Jang Assessments Encounter Date Diagnosis (ICD Code) Assessment Notes Treatment Notes Treatment Clinical Notes Section Notes 02/26/2024 Type 2 diabetes mellitus with diabetic polyneuropathy (ICD-10 - E11.42) 03/01/2024 Cellulitis of toe of left foot (ICD-10 - L03.032) 03/01/2024 Palpable purpura (ICD-10 - D69.2) 03/18/2024 Dermatitis, unspecified (ICD-10 - L30.9) 03/18/2024 Cellulitis of toe of left foot (ICD-10 - L03.032) 06/06/2024 Type 2 diabetes mellitus with diabetic polyneuropathy (ICD-10 - E11.42) 09/16/2024 Plantar wart (ICD-10 - B07.0) 09/16/2024 Type 2 diabetes mellitus with diabetic polyneuropathy (ICD-10 - E11.42) 12/16/2024 Type 2 diabetes mellitus with diabetic polyneuropathy (ICD-10 - E11.42) 12/16/2024 Plantar wart (ICD-10 - B07.0) 09/16/2024 Tinea unguium (ICD-10 - B35.1) 03/01/2024 Dermatitis, unspecified (ICD-10 - L30.9) Rx Benadryl topical medication 06/06/2024 Plantar wart (ICD-10 - B07.0) 03/18/2024 Skin ulcer of toe of left foot, limited to breakdown of skin (ICD-10 - L97.521) 06/06/2024 Tinea unguium (ICD-10 - B35.1) 02/26/2024 Plantar wart (ICD-10 - B07.0) 02/26/2024 Tinea unguium (ICD-10 - B35.1) 06/06/2024 Pain in right foot (ICD-10 - M79.671) 09/16/2024 Pain in right foot (ICD-10 - M79.671) 12/16/2024 Tinea unguium (ICD-10 - B35.1) 12/16/2024 Pain in right foot (ICD-10 - M79.671) 09/16/2024 Ingrown nail (ICD-10 - L60.0) 02/26/2024 Pain in right foot (ICD-10 - M79.671) 02/26/2024 Abscess of toe, left (ICD-10 - L02.612) Patient Educated with: WOUND CARE INSTRUCTIONS.p df (WOUND CARE INSTRUCTIONS.p df) 06/06/2024 Ingrown nail (ICD-10 - L60.0) 12/16/2024 Ingrown nail (ICD-10 - L60.0) 12/16/2024 Other hammer toe(s) (acquired), right foot (ICD-10 - M20.41) Response to treatment,Impr ovement 12/16/2024 Other hammer toe(s) (acquired), left foot (ICD-10 - M20.42) Response to treatment,Impr ovement Plan Of Treatment Pending Test Test Name Order Date 87414-WGQIOWV NAIL, 6 OR MORE 11/11/2019 52066-KTZUPKJ NAIL, 6 OR MORE 02/20/2020 73190-ONSIVYW NAIL, 6 OR MORE 05/25/2020 91187-OJGIGCL NAIL, 6 OR MORE 08/13/2020 37116-ZXCIXSZ NAIL, 6 OR MORE 11/26/2020 42468-ROFMHNL NAIL, 6 OR MORE 02/08/2021 74117-IBPVYYD NAIL, 6 OR MORE 05/13/2021 65856-UJKFNRS NAIL, 6 OR MORE 08/23/2021 87465-GPQELYA NAIL, 6 OR MORE 12/06/2021 37431-MOHULQO NAIL, 6 OR MORE 03/17/2022 28226-CCWTJEO NAIL, 6 OR MORE 06/20/2022 11326-QMSQIZQ NAIL, 6 OR MORE 10/03/2022 89302-IFFHZZY NAIL, 6 OR MORE 04/27/2023 97256-BLYJVQJ NAIL, 6 OR MORE 08/07/2023 53680-UCPRWGX NAIL, 6 OR MORE 11/16/2023 89425-SFIGQZV NAIL, 6 OR MORE 02/26/2024 81334-EYMVEDK NAIL, 6 OR MORE 06/06/2024 85555-LYQIAFT NAIL, 6 OR MORE 09/16/2024 89377-QBZYLRL NAIL, 6 OR MORE 12/16/2024 89103-Nzxx Destruction, 1-14 12/16/2024 90818-Rzrm Destruction, 1-14 09/16/2024 09887-Llxd Destruction, 1-14 06/06/2024 46081-Qxja Destruction, 1-14 02/26/2024 18752-Htix Destruction, 1-14 11/16/2023 29748-Kwho Destruction, 1-14 08/07/2023 84281-Mtxg Destruction, 1-14 04/27/2023 06036-Euozpyzw Plate 03/17/2022 61766-Dmskgtoe Plate 08/07/2023 85752-Vvkrndzj Plate 06/06/2024 87159-Simoqrwm Plate 09/16/2024 26908-Hjjgirti Plate 12/16/2024 22870-Uogsiqgf Plate 12/06/2021 54989-Jpnfllst Plate 08/23/2021 73951-Axgcuatk Plate 02/08/2021 82733-Xybaqvdx Plate 05/13/2021 64521-Zweingut Plate 11/26/2020 77793-Ppdptxpi Plate 05/25/2020 44234-Rzfbplsk Plate 08/13/2020 59746-Tscumize Plate 02/20/2020 62087-Sgfodhnv Plate 11/11/2019 77058-Oyikxawm Plate Each Additional 65975-Vazkhxbn Plate Each Additional 03/2021 95619-Cyqvbgwa Plate Each Additional 96773-Ghtbcvan Plate Each Additional 12/2021 38280-Ufhcnnrh Plate Each Additional 12/2022 18112-Opggvjzq Plate Each Additional 98379- Debride <25 sq cm 03/18/2024 69548 I&D ABSCESS- SIMPLE,SINGLE 024 20872-KFIY SKIN LESIONS, 2 TO 4 02/26/20 24 83147-RCPZ SKIN LESIONS, 2 TO 4 06/06/20 12629-XVTC SKIN LESIONS, 2 TO 4 12/17/19 62572-BAMA SKIN LESIONS, 2 TO 4 09/16/19 93193-FUDI SKIN LESIONS, 2 TO 4 03/17/20 08637-NNLS SKIN LESIONS, 2 TO 4 06/20/20 59209-UCKS SKIN LESIONS, 2 TO 4 04/27/20 02771-KIGL SKIN LESIONS, 2 TO 4 10/03/19 23 34088-UBTP SKIN LESIONS, 2 TO 4 08/07/20 23 09703-GAWR SKIN LESIONS, 2 TO 4 11/16/19 24 22080-LCKX SKIN LESIONS, 2 TO 4 12/07/19 48126-DIHO SKIN LESIONS, 2 TO 4 05/13/20 96818-JUBY SKIN LESIONS, 2 TO 4 08/23/20 82836-QNFB SKIN LESIONS, 2 TO 4 05/25/20 20 76781-RJTM SKIN LESIONS, 2 TO 4 11/11/19 19785-LAOY SKIN LESIONS, 2 TO 4 02/20/20 20 29523-YQXS SKIN LESIONS, 2 TO 4 08/13/20 20 88265-HVSX SKIN LESIONS, 2 TO 4 02/09/20 44429-RGAI SKIN LESIONS, 2 TO 4 11/27/19 48450-Igdy. Subungual Hematoma Next Appt Details Provider Name:Arielle Agarwal , 03/24/2025 09:00:00 AM, [address] [place] [address], [phone], Insurance Providers Payer Name Payer Address Payer Phone Subscriber Number Group Number Insured Name Patient Relationship to Insured Coverage Start Date Coverage End Date Medicare National [facility] [facility] [address] [place] [address] [phone] [id number] Gonzalez Blackman Self - patient is the insured [employer] [address] [place] [address] [phone] [id number] Gonzalez Blackman Self - patient is the insured Medical (General) History Medical History History ICD Code Arthritis Diabetes mellitus High blood pressure cyst drained A-Fib Surgical History Surgery Date(Month/Year) left knee replacement hernia 07/2019 Prostate Surgery 07/2020 cyst lanced 08/12/21 Defibrillator 06/2023 Hospitalization History Reason Date(Month/Year) Dr. Bowers - back infection 04/29/24 [facility] - Stint 04/2022
[2024-12-18 16:44] LABS: TSH reflex Free T4 0.83 uIU/mL (0.32-4.0)
== END 2024-12-18 13:49 | disposition home or self-care (01) ==
LOC: HO.LAB 13:48
DX: I10 Essential (primary) hypertension (principal); R42 Dizziness and giddiness
CPT/HCPCS: 36415; 80053; 82607; 83540; 84443; 85025